=== PATIENT | male | born 1975 | race Two or more races ===

== ENCOUNTER 2019-10-15 17:48 | Inpatient (IN) | payer OTHER ==
--- NOTE | 2019-10-15 18:25 | BHS.RME ---
Substance Use & Tx History - Last Treatment Where was last treatment: Detox CIWA Nausea/Vomitin (vomiting x 2) Muscle Tremors: 4-Moderate,w/Arms Extend Anxiety: 3 Agitation: 3 Paroxysmal Sweats: 2 Orientation: 2-Disoriented Date<2 days Tacttile Disturbances: 0-None Auditory Disturbances: 0-None Visual Disturbances: 0-None Headache: 3-Moderate CIWA-Ar Total Score: 20
--- NOTE | 2019-10-15 18:48 | HP ---
CIWA Score Nausea/Vomitin (vomiting x 2) Muscle Tremors: 4-Moderate,w/Arms Extend Anxiety: 3 Agitation: 3 Paroxysmal Sweats: 2 Orientation: 2-Disoriented Date<2 days Tacttile Disturbances: 0-None Auditory Disturbances: 0-None Visual Disturbances: 0-None Headache: 3-Moderate CIWA-Ar Total Score: 20 - Admission Criteria OASAS Guidelines: Admission for Medically Managed Detox: Requires at least one of the followin. CIWA greater than 12 2. Seizures within the past 24 hours 3. Delirium tremens within the past 24 hours 4. Hallucinations within the past 24 hours 5. Acute intervention needed for co occurring medical disorder 6. Acute intervention needed for co occurring psychiatric disorder 7. Severe withdrawal that cannot be handled at a lower level of care (continued vomiting, continued diarrhea, abnormal vital signs) requiring intravenous medication and/or fluids 8. Admitting History and Physical - Smoking History Smoking history: Current every day smoker Have you smoked in the past 12 months: Yes Aproximately how many cigarettes per day: 10 - Alcohol/Substance Use Hx Alcohol Use: Yes (BEER/VODKA) Admission ROS [facility] Chief Complaint: Alcohol withdrawal symptoms Allergies/Adverse Reactions: Allergies Allergy/AdvReac Type Severity Reaction Status Date / Time No Known Allergies Allergy Verified 10/15/19 19:03 History of Present Illness: 44 years old male with a long history of alcohol dependence is seeking admission to detox. Patient's recent detox was at [facility] and he reports 2 years of sobriety. His last admission to [facility] was for the period 09/12-09/17/2014. He has medical history of asthma, hypertension, Diabetes type 2(diet controlled- not on medication), GERD and psych. history of depression, bipolar disorder, PTSD and schizophrenia. He reports suicide attempt in 2005, 2018 and denies suicidal ideation at this time. 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 He is unemployed and lives with his girlfriend. Exam Limitations: No Limitations - Ebola screening Have you traveled outside of the country in the last 21 days: No Have you had contact with anyone from an Ebola affected area: No Do you have a fever: No - Review of Systems Constitutional: Chills, Loss of Appetite, Malaise, Changes in sleep EENT: reports: Nose Congestion Respiratory: reports: No Symptoms reported Cardiac: reports: No Symptoms Reported GI: reports: Diarrhea (x 2), Poor Appetite, Poor Fluid Intake, Vomiting, Abdominal cramping : reports: No Symptoms Reported Musculoskeletal: reports: Back Pain, Joint Pain, Muscle Pain Integumentary: reports: Dryness, Flushing Neuro: reports: Headache, Tremors Endocrine: reports: No Symptoms Reported Hematology: reports: No Symptoms Reported Psychiatric: reports: Mood/Affect Appropiate, Anxious, Depressed Other Systems: Reviewed and Negative Patient History - Patient Medical History Hx Anemia: No Hx Asthma: Yes (ALBUTEROL INHALER PRN) Hx Chronic Obstructive Pulmonary Disease (COPD): No Hx Cardiac Disorders: No Hx Hypertension: Yes (On Enalapril) Hx Hypercholesterolemia: No HX Cerebrovascular Accident: No Hx Seizures: Yes (-last 2012,Etoh & Xanax r/t) Hx Diabetes: Yes (Diet controlled- Not on meds) Hx Gastrointestinal Disorders: Yes (GERD-On Nexium) Hx Genitourinary Disorders: No Hx Sexually Transmitted Disorders: No Hx Renal Disease (ESRD): No Hx Thyroid Disease: No Hx Human Immunodeficiency Virus (HIV): No (NEGATIVE 2018) Hx Hepatitis C: No Hx Depression: Yes (AND ANXIETY) Hx Suicide Attempt: Yes (Hx ATTEMPTS 2005, 2018. DENIES CURRENT SUICIDAL IDEATIONS) Hx Bipolar Disorder: Yes Hx Schizophrenia: Yes - Patient Surgical History Past Surgical History: Yes Hx Cholecystectomy: Yes (GALLBLADDER SX IN 2013) Anesthesia Reaction: No - PPD History Previous Implant?: Yes Documented Results: Negative w/proof Implanted On Prior R Admission?: Yes Date: 09/15/14 PPD to be Administered?: Yes - Reproductive History Patient is a Female of Child Bearing Age (11 -55 yrs old): No (MALE) - Smoking Cessation Smoking history: Current every day smoker Have you smoked in the past 12 months: Yes Aproximately how many cigarettes per day: 10 Hx Chewing Tobacco Use: No Initiated information on smoking cessation: Yes 'Breaking Loose' booklet given: 10/15/19 - Substance & Tx. History Hx Alcohol Use: Yes Hx Substance Use: Yes Substance Use Type: Alcohol, Marijuana Hx Substance Use Treatment: Yes ([facility]) - Substances abused Alcohol Substance route: Oral Frequency: Daily Amount used: 6 (40 oz) Beers Age of first use: 14 Date of last use: 10/15/19 Admission Physical Exam [facility] - Physical General Appearance: Yes: Within Normal Limits, Tremorous, Irritable, Sweating, Anxious HEENTM: Yes: Within Normal Limits Respiratory: Yes: Lungs Clear, Normal Breath Sounds, No Respiratory Distress Neck: Yes: Within Normal Limits Breast: Yes: Breast Exam Deferred Cardiology: Yes: Tachycardia Abdominal: Yes: Normal Bowel Sounds, Protuberent Genitourinary: Yes: Within Normal Limits, Vaginal Discharge Musculoskeletal: Yes: Back pain, Muscle Pain Extremities: Yes: Tremors Neurological: Yes: Within Normal Limits, Normal Mood/Affect Integumentary: Yes: Warm Lymphatic: Yes: Within Normal Limits - Diagnostic (1) Alcohol related seizure Current Visit: No Status: Chronic (2) Nicotine dependence Current Visit: Yes Status: Chronic Qualifiers: Nicotine product type: cigarettes Substance use status: uncomplicated Qualified Code(s): F17.210 - Nicotine dependence, cigarettes, uncomplicated (3) PTSD (post-traumatic stress disorder) Current Visit: Yes Status: Chronic (4) Schizoaffective disorder Current Visit: Yes Status: Chronic (5) Acid reflux disease Current Visit: Yes Status: Chronic Qualifiers: Esophagitis presence: esophagitis presence not specified Qualified Code(s) : K21.9 - Gastro-esophageal reflux disease without esophagitis (6) Anxiety Current Visit: Yes Status: Chronic (7) Asthma Current Visit: Yes Status: Chronic Qualifiers: Asthma severity: mild Asthma persistence: intermittent Asthma complication type: uncomplicated Qualified Code(s): J45.20 - Mild intermittent asthma, uncomplicated (8) Depression Current Visit: Yes Status: Chronic (9) HTN (hypertension) Current Visit: Yes Status: Chronic Qualifiers: Hypertension type: unspecified Qualified Code(s): I10 - Essential (primary ) hypertension (10) Type 2 diabetes mellitus Current Visit: Yes Status: Chronic Qualifiers: Diabetes mellitus complication status: without complication (11) Alcohol dependence with withdrawal, uncomplicated Current Visit: Yes Status: Acute Cleared for Admission [facility] - Detox or Rehab [facility] Level of Care: Medically Managed Detox Regimen/Protocol: Librium Claeared for Rehab Admission: No Breathalyzer - Breathalyzer Breathalyzer: 0.139 Urine Drug Screen - Test Device Lot number: [id number] Expiration date: 07/18/21 - Control Is test valid?: Yes - Results Drug screen NEGATIVE: No Urine drug screen results: THC-Marijuana Inpatient Rehab Admission - Rehab Decision to Admit Inpatient rehab admission?: No
[2019-10-15 19:16] VITALS: BMI 31.6
[2019-10-15] MEDS ORDERED: NICOTINE POLACRILEX 2 MG GUM BUC PRN (20:26)
[2019-10-15] MEDS ORDERED: MAG HYDROX/AL HYDROX/SIMETH 30 ML UNIT-DOSE CUP PO PRN (20:26)
[2019-10-15] MEDS ORDERED: MENTHOL/PHENOL 1 EACH UD MM PRN (20:26)
[2019-10-15] MEDS ORDERED: MAGNESIUM HYDROX 2400MG/30ML ORAL SUSPENSION 30 ML CUP PO PRN (20:26)
[2019-10-15] MEDS ORDERED: BISMUTH SUBSALICYLATE 524 MG/30 ML UD PO PRN (20:26)
[2019-10-15] MEDS ORDERED: ACETAMINOPHEN 325 MG TABLET (FP) PO PRN ×2 (20:26)
[2019-10-15] MEDS ORDERED: hydrOXYzine PAMOATE 25 MG CAPSULE (FP) PO PRN (20:26)
[2019-10-15] MEDS ORDERED: MAGNESIUM CITRATE 300 ML BOTTLE PO PRN (20:26)
[2019-10-15] MEDS: THIAMINE HCL 100 MG TABLET (FP) PO SCH (21:08)
[2019-10-15] MEDS: ENALAPRIL MALEATE 10 MG TABLET (FP) PO SCH (21:08)
[2019-10-15] MEDS: IBUPROFEN 400 MG TABLET (FP) PO PRN (21:12)
[2019-10-15] MEDS: chlordiazePOXIDE HCL 25 MG CAPSULE PO SCH (21:59)
[2019-10-15] MEDS ORDERED: MELATONIN 5 MG TABLETS PO PRN (22:00)
[2019-10-16] MEDS: IBUPROFEN 400 MG TABLET (FP) PO PRN ×2 (05:35→16:55)
[2019-10-16] MEDS: chlordiazePOXIDE HCL 25 MG CAPSULE PO SCH ×4 (05:36→22:01)
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
[2019-10-16] MEDS: PRENATAL VITAMINS W/ FOLIC ACID TABLET (FP) PO SCH (10:44)
[2019-10-16] MEDS: ENALAPRIL MALEATE 10 MG TABLET (FP) PO SCH (10:44)
[2019-10-16] MEDS: NICOTINE 14 MG/24 HOURS TOPICAL PATCH TD SCH (10:45)
[2019-10-16] MEDS: OLANZapine 10 MG TABLET PO SCH (10:45)
[2019-10-16] MEDS: OXcarbazepine 300 MG TABLET (UD) PO SCH ×2 (10:45→22:01)
[2019-10-16] MEDS: DULoxetine HCL 60 MG CAPSULE.DR PO SCH (10:46)
[2019-10-16 11:22] LABS: HEMATOCRIT 45.9 % (35.4-49); HEMOGLOBIN 15.9 GM/dL (11.7-16.9); MCH 32.2 pg (25.7-33.7); MCHC 34.6 g/dl (32.0-35.9); MEAN CELL VOLUME 93.2 fl (80-96); MEAN PLT VOLUME 8.2 fl (7.5-11.1); PLATELET COUNT 221 K/MM3 (134-434); RBC 4.92 M/mm3 (4.00-5.60); RDW 14.7 % (11.9-15.9)
[2019-10-16 11:36] LABS: CALCIUM 8.5 mg/dL (8.5-10.1); POTASSIUM 4.4 mmol/L (3.5-5.1)
[2019-10-16 12:03] LABS: ALBUMIN 4.2 g/dl (3.4-5.0); BILIRUBIN,TOTAL 0.9 mg/dL (0.2-1); CREATININE 0.8 mg/dL (0.55-1.3); TOT PROT 7.4 g/dl (6.4-8.2)
--- NOTE | 2019-10-16 12:18 | PN ---
S CIWA - CIWA Score Nausea/Vomitin Muscle Tremors: 1-None Visible, but [place] Anxiety: 2 Agitation: 1-Slight > Activity Paroxysmal Sweats: 2 Orientation: 0-Oriented Tacttile Disturbances: 1-Very Mild Itch/Numbness Auditory Disturbances: 0-None Visual Disturbances: 0-None Headache: 0-None Present CIWA-Ar Total Score: 10 BHS COWS - Scale Resting Pulse: 0= [place] 80 or Below Sweatin=Flushed/Facial Moisture Restless Observation: 1= Difficult to Sit Still Pupil Size: 1= Pupils >than Normal Bone or Joint Aches: 1= Mild Discomfort Runny Nose/ Eye Tearin= Nasal Congestion GI Upset > 30mins: 2= Nausea/Diarrhea Tremor Observation of Outstretched Hands: 1= Tremor [place], Not Seen Yawning Observation: 0= None Anxiety or Irritability: 2=Irritable/Anxious Goose Flesh Skin: 0=Smooth Skin COWS Score: 11 S Progress Note (SOAP) Subjective: interrupted sleep, sweats shakes, nausea, diarrhea , decreased apeptite Objective: 10/16/19 12:16 Vital Signs Temperature 98.8 F 10/16/19 08:41 Pulse Rate 101 H 10/16/19 08:41 Respiratory Rate 18 10/16/19 08:41 Blood Pressure 147/83 10/16/19 08:41 O2 Sat by Pulse Oximetry (%) Laboratory Tests 10/16/19 10/16/19 10/16/19 05:38 08:00 08:00 WBC 6.0 RBC 4.92 Hgb 15.9 Hct 45.9 MCV 93.2 MCH 32.2 MCHC 34.6 RDW 14.7 Plt Count 221 MPV 8.2 Sodium 140 Potassium 4.4 Chloride 106 Carbon Dioxide 27 Anion Gap 7 L BUN 10.0 Creatinine 0.8 Est GFR (CKD-EPI)AfAm 124.16 Est GFR (CKD-EPI)NonAf 107.13 POC Glucometer 99 Random Glucose 89 Calcium 8.5 Total Bilirubin 0.9 AST 27 ALT 48 Alkaline Phosphatase 104 Total Protein 7.4 Albumin 4.2 RPR Titer 10/16/19 08:00 WBC RBC Hgb Hct MCV MCH MCHC RDW Plt Count MPV Sodium Potassium Chloride Carbon Dioxide Anion Gap BUN Creatinine Est GFR (CKD-EPI)AfAm Est GFR (CKD-EPI)NonAf POC Glucometer Random Glucose Calcium Total Bilirubin AST ALT Alkaline Phosphatase Total Protein Albumin RPR Titer Nonreactive pt aox3 in nad ambulating but appearing anxious Assessment: 10/16/19 12:17 withdrawal sx';s Plan: continue detox increase fluids peptobismol
--- NOTE | 2019-10-16 12:52 | EKG ---
Test Reason : Blood Pressure : / mmHG Vent. Rate : 091 BPM Atrial Rate : 091 BPM P-R Int : 144 ms QRS Dur : 074 ms QT Int : 346 ms P-R-T Axes : 038 041 049 degrees QTc Int : 425 ms NORMAL SINUS RHYTHM NORMAL ECG NO PREVIOUS ECGS AVAILABLE Confirmed by CHI KRAUSE MD ([id number]) on 10/16/2019 12:52:13 PM Referred By: Confirmed By:CHI KRAUSE MD
[2019-10-16] MEDS: THIAMINE HCL 100 MG TABLET (FP) PO SCH (22:01)
[2019-10-16] MEDS: traZODone HCL 100 MG TABLET (FP) PO SCH (22:01)
[2019-10-16] MEDS: METHOCARBAMOL 500 MG TABLET PO PRN (22:02)
[2019-10-17] MEDS: chlordiazePOXIDE HCL 25 MG CAPSULE PO SCH ×4 (05:32→22:55)
[2019-10-17] MEDS: chlordiazePOXIDE HCL 25 MG CAPSULE PO PRN ×2 (07:55→13:35)
[2019-10-17] MEDS: DULoxetine HCL 60 MG CAPSULE.DR PO SCH (10:12)
[2019-10-17] MEDS: ENALAPRIL MALEATE 10 MG TABLET (FP) PO SCH (10:12)
[2019-10-17] MEDS: PRENATAL VITAMINS W/ FOLIC ACID TABLET (FP) PO SCH (10:12)
[2019-10-17] MEDS: METHOCARBAMOL 500 MG TABLET PO PRN (10:12)
[2019-10-17] MEDS: NICOTINE 14 MG/24 HOURS TOPICAL PATCH TD SCH (10:12)
[2019-10-17] MEDS: OLANZapine 10 MG TABLET PO SCH (10:13)
[2019-10-17] MEDS: OXcarbazepine 300 MG TABLET (UD) PO SCH ×2 (10:13→22:55)
[2019-10-17] MEDS: IBUPROFEN 400 MG TABLET (FP) PO PRN (13:32)
--- NOTE | 2019-10-17 17:50 | PN ---
S CIWA - CIWA Score Nausea/Vomitin Muscle Tremors: None Anxiety: 4-Mod. Anxious/Guarded Agitation: 3 Paroxysmal Sweats: No Perspiration Orientation: 0-Oriented Tacttile Disturbances: 0-None Auditory Disturbances: 0-None Visual Disturbances: 1-Very Mild Sensitivity Headache: 0-None Present CIWA-Ar Total Score: 11 BHS COWS - Scale Resting Pulse: 2= [place] 101-120 Sweatin= No chills or Flushing Restless Observation: 1= Difficult to Sit Still Pupil Size: 0= Normal to Room Light Bone or Joint Aches: 1= Mild Discomfort Runny Nose/ Eye Tearin= None GI Upset > 30mins: 2= Nausea/Diarrhea Tremor Observation of Outstretched Hands: 0= None Yawning Observation: 1= 1-2x During Session Anxiety or Irritability: 2=Irritable/Anxious Goose Flesh Skin: 0=Smooth Skin COWS Score: 9 BHS Progress Note (SOAP) Subjective: Anxious, Fatigue, Nausea, Body Aches. Objective: PATIENT A & O X 3, OBSERVED AMBULATING ON DETOX UNIT UNASSISTED. IN NO ACUTE DISTRESS. 10/17/19 17:49 Vital Signs Temperature 96.5 F L 10/17/19 06:36 Pulse Rate 101 H 10/17/19 11:26 Respiratory Rate 20 10/17/19 11:26 Blood Pressure 135/84 10/17/19 11:26 O2 Sat by Pulse Oximetry (%) Laboratory Tests 10/16/19 10/16/19 10/16/19 05:38 08:00 08:00 WBC 6.0 RBC 4.92 Hgb 15.9 Hct 45.9 MCV 93.2 MCH 32.2 MCHC 34.6 RDW 14.7 Plt Count 221 MPV 8.2 Sodium 140 Potassium 4.4 Chloride 106 Carbon Dioxide 27 Anion Gap 7 L BUN 10.0 Creatinine 0.8 Est GFR (CKD-EPI)AfAm 124.16 Est GFR (CKD-EPI)NonAf 107.13 POC Glucometer 99 Random Glucose 89 Calcium 8.5 Total Bilirubin 0.9 AST 27 ALT 48 Alkaline Phosphatase 104 Total Protein 7.4 Albumin 4.2 RPR Titer 10/16/19 10/16/19 10/17/19 08:00 16:44 05:34 WBC RBC Hgb Hct MCV MCH MCHC RDW Plt Count MPV Sodium Potassium Chloride Carbon Dioxide Anion Gap BUN Creatinine Est GFR (CKD-EPI)AfAm Est GFR (CKD-EPI)NonAf POC Glucometer 97 97 Random Glucose Calcium Total Bilirubin AST ALT Alkaline Phosphatase Total Protein Albumin RPR Titer Nonreactive 10/17/19 16:34 WBC RBC Hgb Hct MCV MCH MCHC RDW Plt Count MPV Sodium Potassium Chloride Carbon Dioxide Anion Gap BUN Creatinine Est GFR (CKD-EPI)AfAm Est GFR (CKD-EPI)NonAf POC Glucometer 124 Random Glucose Calcium Total Bilirubin AST ALT Alkaline Phosphatase Total Protein Albumin RPR Titer LABS NOTED. Assessment: 10/17/19 17:49 WITHDRAWAL SYMPTOMS. Plan: CONTINUE DETOX. INCREASE DAILY ORAL WATER INTAKE.
[2019-10-17] MEDS: THIAMINE HCL 100 MG TABLET (FP) PO SCH (22:55)
[2019-10-17] MEDS: traZODone HCL 100 MG TABLET (FP) PO SCH (22:55)
[2019-10-18] MEDS ORDERED: chlordiazePOXIDE HCL 10 MG CAPSULE PO PRN
[2019-10-18] MEDS: chlordiazePOXIDE HCL 10 MG CAPSULE PO SCH ×4 (05:51→22:22)
[2019-10-18] MEDS: IBUPROFEN 400 MG TABLET (FP) PO PRN ×3 (05:52→17:32)
[2019-10-18] MEDS: NICOTINE 14 MG/24 HOURS TOPICAL PATCH TD SCH (11:11)
[2019-10-18] MEDS: OXcarbazepine 300 MG TABLET (UD) PO SCH ×2 (11:16→22:23)
[2019-10-18] MEDS: DULoxetine HCL 60 MG CAPSULE.DR PO SCH (11:17)
[2019-10-18] MEDS: PRENATAL VITAMINS W/ FOLIC ACID TABLET (FP) PO SCH (11:17)
[2019-10-18] MEDS: ENALAPRIL MALEATE 10 MG TABLET (FP) PO SCH (11:19)
[2019-10-18] MEDS: OLANZapine 10 MG TABLET PO SCH (11:20)
--- NOTE | 2019-10-18 15:35 | PN ---
[facility] CIWA - CIWA Score Nausea/Vomitin-No Nausea/No Vomiting Muscle Tremors: 2 Anxiety: 2 Agitation: 2 Paroxysmal Sweats: 2 Orientation: 0-Oriented Tacttile Disturbances: 0-None Auditory Disturbances: 0-None Visual Disturbances: 0-None Headache: 0-None Present CIWA-Ar Total Score: 8 S Progress Note (SOAP) Subjective: Tremor, nausea, interrupted sleep Objective: 10/18/19 15:31 Last Vital Signs Temp Pulse Resp BP Pulse Ox 96.9 F L 60 16 152/78 10/18/19 12:41 10/18/19 12:41 10/18/19 12:41 10/18/19 12:41 Elevated b/p noted Laboratory Tests 10/16/19 10/16/19 10/16/19 05:38 08:00 08:00 WBC 6.0 RBC 4.92 Hgb 15.9 Hct 45.9 MCV 93.2 MCH 32.2 MCHC 34.6 RDW 14.7 Plt Count 221 MPV 8.2 Sodium 140 Potassium 4.4 Chloride 106 Carbon Dioxide 27 Anion Gap 7 L BUN 10.0 Creatinine 0.8 Est GFR (CKD-EPI)AfAm 124.16 Est GFR (CKD-EPI)NonAf 107.13 POC Glucometer 99 Random Glucose 89 Calcium 8.5 Total Bilirubin 0.9 AST 27 ALT 48 Alkaline Phosphatase 104 Total Protein 7.4 Albumin 4.2 RPR Titer 10/16/19 10/16/19 10/17/19 08:00 16:44 05:34 WBC RBC Hgb Hct MCV MCH MCHC RDW Plt Count MPV Sodium Potassium Chloride Carbon Dioxide Anion Gap BUN Creatinine Est GFR (CKD-EPI)AfAm Est GFR (CKD-EPI)NonAf POC Glucometer 97 97 Random Glucose Calcium Total Bilirubin AST ALT Alkaline Phosphatase Total Protein Albumin RPR Titer Nonreactive 10/17/19 10/18/19 16:34 06:16 WBC RBC Hgb Hct MCV MCH MCHC RDW Plt Count MPV Sodium Potassium Chloride Carbon Dioxide Anion Gap BUN Creatinine Est GFR (CKD-EPI)AfAm Est GFR (CKD-EPI)NonAf POC Glucometer 124 111 Random Glucose Calcium Total Bilirubin AST ALT Alkaline Phosphatase Total Protein Albumin RPR Titer Labs reviewed Assessment: 10/18/19 15:32 Withdrawal sxs HTN noted Plan: Continue detox Encouraged PO water intake HTN: continue enalapril, monitor b/p
[2019-10-18] MEDS: ONDANSETRON *ODT* 4 MG TABLET SL PRN (17:32)
[2019-10-18] MEDS: METHOCARBAMOL 500 MG TABLET PO PRN (17:35)
[2019-10-18] MEDS: THIAMINE HCL 100 MG TABLET (FP) PO SCH (22:23)
[2019-10-18] MEDS: traZODone HCL 100 MG TABLET (FP) PO SCH (22:23)
[2019-10-19] MEDS: METHOCARBAMOL 500 MG TABLET PO PRN ×3 (06:01→22:39)
[2019-10-19] MEDS: chlordiazePOXIDE HCL 10 MG CAPSULE PO SCH ×2 (06:02→17:34)
[2019-10-19] MEDS: IBUPROFEN 400 MG TABLET (FP) PO PRN ×3 (06:02→22:39)
[2019-10-19] MEDS: DULoxetine HCL 60 MG CAPSULE.DR PO SCH (10:28)
[2019-10-19] MEDS: OLANZapine 10 MG TABLET PO SCH (10:28)
[2019-10-19] MEDS: PRENATAL VITAMINS W/ FOLIC ACID TABLET (FP) PO SCH (10:28)
[2019-10-19] MEDS: OXcarbazepine 300 MG TABLET (UD) PO SCH ×2 (10:28→22:37)
[2019-10-19] MEDS: ENALAPRIL MALEATE 10 MG TABLET (FP) PO SCH (10:28)
[2019-10-19] MEDS: NICOTINE 14 MG/24 HOURS TOPICAL PATCH TD SCH (10:28)
--- NOTE | 2019-10-19 11:37 | PN ---
S CIWA - CIWA Score Nausea/Vomitin-No Nausea/No Vomiting Muscle Tremors: 2 Anxiety: 1-Mildly Anxious Agitation: 1-Slight > Activity Paroxysmal Sweats: No Perspiration Orientation: 0-Oriented Tacttile Disturbances: 0-None Auditory Disturbances: 0-None Visual Disturbances: 0-None Headache: 0-None Present CIWA-Ar Total Score: 4 BHS Progress Note (SOAP) Subjective: headache poor appetite Objective: 10/19/19 11:36 Vital Signs Temperature 97.7 F 10/19/19 08:50 Pulse Rate 97 H 10/19/19 08:50 Respiratory Rate 20 10/19/19 08:50 Blood Pressure 140/90 10/19/19 08:50 O2 Sat by Pulse Oximetry (%) aaox3 ambulating no acute distress Assessment: 10/19/19 11:36 mild withdrawal sx Plan: motrin/tylenol prn ensure bid d/c in am
[2019-10-19] MEDS: traZODone HCL 100 MG TABLET (FP) PO SCH (22:37)
[2019-10-19] MEDS: THIAMINE HCL 100 MG TABLET (FP) PO SCH (22:37)
[2019-10-20] MEDS ORDERED: chlordiazePOXIDE HCL 10 MG CAPSULE PO ONE (05:00)
[2019-10-20] MEDS: METHOCARBAMOL 500 MG TABLET PO PRN (06:04)
[2019-10-20] MEDS: IBUPROFEN 400 MG TABLET (FP) PO PRN (06:06)
[2019-10-20] MEDS ORDERED: cloNIDine HCL 0.1 MG TABLET PO ONE (08:43)
[2019-10-20] MEDS: OLANZapine 10 MG TABLET PO SCH (09:02)
[2019-10-20] MEDS: DULoxetine HCL 60 MG CAPSULE.DR PO SCH (09:02)
[2019-10-20] MEDS: PRENATAL VITAMINS W/ FOLIC ACID TABLET (FP) PO SCH (09:02)
[2019-10-20] MEDS: ENALAPRIL MALEATE 10 MG TABLET (FP) PO SCH (09:02)
[2019-10-20] MEDS: OXcarbazepine 300 MG TABLET (UD) PO SCH (09:03)
[2019-10-20] MEDS: ONDANSETRON *ODT* 4 MG TABLET SL PRN (09:06)
[2019-10-20] MEDS: NICOTINE 14 MG/24 HOURS TOPICAL PATCH TD SCH (09:07)
--- NOTE | 2019-10-20 09:19 | DS ---
[facility] Detox Discharge Summary Admission Date: 10/15/19 Discharge Date: 10/20/19 - History Present History: Alcohol Dependence - Physical Exam Results Vital Signs: Vital Signs Temperature 97.2 F L 10/20/19 05:59 Pulse Rate 110 H 10/20/19 05:59 Respiratory Rate 18 10/20/19 05:59 Blood Pressure 141/97 10/20/19 05:59 O2 Sat by Pulse Oximetry (%) Pertinent Admission Physical Exam Findings: Vital Signs Temperature 97.2 F L 10/20/19 05:59 Pulse Rate 110 H 10/20/19 05:59 Respiratory Rate 18 10/20/19 05:59 Blood Pressure 141/97 10/20/19 05:59 O2 Sat by Pulse Oximetry (%) Laboratory Tests 10/16/19 10/16/19 10/16/19 05:38 08:00 08:00 WBC 6.0 RBC 4.92 Hgb 15.9 Hct 45.9 MCV 93.2 MCH 32.2 MCHC 34.6 RDW 14.7 Plt Count 221 MPV 8.2 Sodium 140 Potassium 4.4 Chloride 106 Carbon Dioxide 27 Anion Gap 7 L BUN 10.0 Creatinine 0.8 Est GFR (CKD-EPI)AfAm 124.16 Est GFR (CKD-EPI)NonAf 107.13 POC Glucometer 99 Random Glucose 89 Calcium 8.5 Total Bilirubin 0.9 AST 27 ALT 48 Alkaline Phosphatase 104 Total Protein 7.4 Albumin 4.2 RPR Titer 10/16/19 10/16/19 10/17/19 08:00 16:44 05:34 WBC RBC Hgb Hct MCV MCH MCHC RDW Plt Count MPV Sodium Potassium Chloride Carbon Dioxide Anion Gap BUN Creatinine Est GFR (CKD-EPI)AfAm Est GFR (CKD-EPI)NonAf POC Glucometer 97 97 Random Glucose Calcium Total Bilirubin AST ALT Alkaline Phosphatase Total Protein Albumin RPR Titer Nonreactive 10/17/19 10/18/19 10/18/19 16:34 06:16 16:47 WBC RBC Hgb Hct MCV MCH MCHC RDW Plt Count MPV Sodium Potassium Chloride Carbon Dioxide Anion Gap BUN Creatinine Est GFR (CKD-EPI)AfAm Est GFR (CKD-EPI)NonAf POC Glucometer 124 111 156 Random Glucose Calcium Total Bilirubin AST ALT Alkaline Phosphatase Total Protein Albumin RPR Titer 10/19/19 10/19/19 10/20/19 06:00 16:35 06:03 WBC RBC Hgb Hct MCV MCH MCHC RDW Plt Count MPV Sodium Potassium Chloride Carbon Dioxide Anion Gap BUN Creatinine Est GFR (CKD-EPI)AfAm Est GFR (CKD-EPI)NonAf POC Glucometer 108 138 104 Random Glucose Calcium Total Bilirubin AST ALT Alkaline Phosphatase Total Protein Albumin RPR Titer aaox3 ambulating no acute distress - Treatment Hospital Course: Detox Protocol Followed, Detoxed Safely, Responded well, Discharged Condition Good, Rehab Referral Accepted - Medication Discharge Medications: Ambulatory Orders Duloxetine HCl [Cymbalta] 60 mg PO DAILY 10/15/19 Enalapril Maleate [Vasotec] 20 mg PO DAILY 10/15/19 Ibuprofen 600 mg PO Q8H 10/15/19 Olanzapine [Zyprexa] 20 mg PO DAILY 10/15/19 Oxcarbazepine [Trileptal] 300 mg PO BID 10/15/19 traZODone HCL [Trazodone HCl] 100 mg PO HS 10/15/19 - Diagnosis (1) Alcohol dependence with withdrawal, uncomplicated Current Visit: Yes Status: Chronic (2) Alcohol-induced mood disorder Current Visit: Yes Status: Acute (3) Alcohol-induced sleep disorder Current Visit: Yes Status: Acute (4) Acid reflux disease Current Visit: Yes Status: Chronic Qualifiers: Esophagitis presence: without esophagitis Qualified Code(s): K21.9 - Gastro -esophageal reflux disease without esophagitis (5) Anxiety Current Visit: Yes Status: Chronic (6) Asthma Current Visit: Yes Status: Chronic Qualifiers: Asthma severity: mild Asthma persistence: intermittent Asthma complication type: uncomplicated Qualified Code(s): J45.20 - Mild intermittent asthma, uncomplicated (7) Depression Current Visit: Yes Status: Chronic (8) HTN (hypertension) Current Visit: Yes Status: Chronic Qualifiers: Hypertension type: unspecified Qualified Code(s): I10 - Essential (primary ) hypertension (9) Nicotine dependence Current Visit: Yes Status: Chronic Qualifiers: Nicotine product type: cigarettes Substance use status: uncomplicated Qualified Code(s): F17.210 - Nicotine dependence, cigarettes, uncomplicated (10) PTSD (post-traumatic stress disorder) Current Visit: Yes Status: Chronic (11) Schizoaffective disorder Current Visit: Yes Status: Chronic (12) Type 2 diabetes mellitus Current Visit: Yes Status: Chronic Qualifiers: Diabetes mellitus complication status: without complication (13) Schizophrenia Current Visit: No Status: Chronic (14) Seizure Current Visit: No Status: Chronic (15) Alcohol related seizure Current Visit: No Status: Resolved - AMA Did Patient Leave Against Medical Advice: No
--- NOTE | 2019-10-20 09:24 | PN ---
S Progress Note Note: pt c/o of fast heart beat, pt had his BP checked at 8:40am...142/79, HR 136. pt denies SOB, denies chest pain, denies radiating pain down arm. clonidine 0.1mg x one will repeat BP will monitor
--- NOTE | 2019-10-20 13:25 | PN ---
[facility] Progress Note Note: pt c/o pressure to his chest and having SOB, ekg ordered; tachycardia but otherwise normal EKG. spoke with Dr. Valdes report given to have pt evaluated for chest discomfort. pt may return back once he is cleared and go to rehab.
[2019-10-20 14:43] VITALS: BP 103/58; PULSE 142; TEMP 98.1
== END 2019-10-20 21:51 | disposition short-term general hospital (02) | DRG 775 ==
LOC: YASAS 17:48 → Y6N 20:22
PROVIDERS: ADMIT Allergy & Immunology; ATTEND Allergy & Immunology
PROC: HZ2ZZZZ Detoxification Services for Substance Abuse Treatment (ICD-10-PCS; principal; 2019-10-15)
DX: F10.230 Alcohol dependence with withdrawal, uncomplicated (principal); F17.210 Nicotine dependence, cigarettes, uncomplicated; F10.24 Alcohol dependence with alcohol-induced mood disorder; F10.282 Alcohol dependence with alcohol-induced sleep disorder; F25.9 Schizoaffective disorder, unspecified; F41.8 Other specified anxiety disorders; F32.9 Major depressive disorder, single episode, unspecified; F43.10 Post-traumatic stress disorder, unspecified; I10 Essential (primary) hypertension; E11.9 Type 2 diabetes mellitus without complications; J45.20 Mild intermittent asthma, uncomplicated; K21.9 Gastro-esophageal reflux disease without esophagitis; R06.02 Shortness of breath; R07.9 Chest pain, unspecified; Z86.69 Personal history of other diseases of the nervous system and sense organs
CPT/HCPCS: 36415; 80053; 82962; 85027; 86593; 93005; 93010; J0735; Q0162

== ENCOUNTER 2019-10-20 13:50 | Inpatient (IN) | payer OTHER ==
--- NOTE | 2019-10-20 14:13 | PDOC ---
History of Present Illness - General Chief Complaint: Irregular Heart Beat Stated Complaint: Tachycardia Time Seen by Provider: 10/20/19 14:05 History Source: Patient Exam Limitations: No Limitations - History of Present Illness Initial Comments: Jovanni Azul is a 44 yo m w a hx of alcohol dependence complicated by withdrawal with seizures coming from [facility], asthma, HTN, NIDDM, GERD, depression, anxiety, multiple suicide attempts, bipolar disorder, and schizophrenia who presents to the [facility] er with palpitations and an abnormal heart rate. The patient states his heart intermittently starts beating fast and then normalizes and this has been ongoing for the past week if not longer. The patient is not currently on anticoagulants or any rate slowing medications. He states that when the fluttering sensation happens he feels like his chest hurts and describes the pain as sharp and heavy like in nature. The pain and fluttering is not associated with any nausea or vomiting. The patient states he told the provider at [facility] about his palpitations and he was given 0.1 mg of clonidine for treatment but he states he does not believe this helped his situation. PCP: Ariella Sanchez PSH: cholecystectomy Allergies: NKA, NKDA Social Hx: Smokes 1 PPD, frequently drinks alcohol and uses marijuana often. Past History - Past Medical History Allergies/Adverse Reactions: Allergies Allergy/AdvReac Type Severity Reaction Status Date / Time No Known Allergies Allergy Verified 10/20/19 14:44 Home Medications: Ambulatory Orders Duloxetine HCl [Cymbalta] 60 mg PO DAILY 10/15/19 Enalapril Maleate [Vasotec] 20 mg PO DAILY 10/15/19 Olanzapine [Zyprexa] 20 mg PO DAILY 10/15/19 Oxcarbazepine [Trileptal] 300 mg PO BID 10/15/19 traZODone HCL [Trazodone HCl] 100 mg PO HS 10/15/19 Anemia: No Asthma: Yes (ALBUTEROL INHALER PRN) Cardiac Disorders: No CVA: No COPD: No Diabetes: Yes (Diet controlled- Not on meds) GI Disorders: Yes (GERD-On Nexium) Disorders: No HTN: Yes (On Enalapril) Hypercholesterolemia: No Kidney Stones: No Seizures: Yes (-last 2012,Etoh & Xanax r/t) Thyroid Disease: No - Surgical History Abdominal Surgery: Yes (mesh surgery 2017) Appendectomy: No Cardiac Surgery: No Cholecystectomy: Yes (GALLBLADDER SX IN 2014) Lung Surgery: No Neurologic Surgery: No Orthopedic Surgery: No - Reproductive History Testicular Surgery: No - Psycho Social/Smoking Cessation Hx Smoking History: Current every day smoker Have you smoked in the past 12 months: Yes Number of Cigarettes Smoked Daily: 10 'Breaking Loose' booklet given: 10/15/19 Hx Alcohol Use: Yes Drug/Substance Use Hx: Yes Substance Use Type: Alcohol, Marijuana Hx Substance Use Treatment: Yes ([facility]) Review of Systems - Review of Systems Able to Perform ROS?: Yes Comments:: CONSTITUTIONAL: Absent: fever, no chills, no fatigue EYES: Absent: visual changes ENT: Absent: ear pain, no sore throat CARDIOVASCULAR: Present: Chest pain, palpitations RESPIRATORY: Absent: cough, no SOB GI: Absent: abdominal pain, no nausea, no vomiting, no constipation, no diarrhea GENITOURINARY: Absent: dysuria, no frequency, no hematuria MUSKULOSKELETAL: Absent: back pain, no arthralgia, no myalgia SKIN: Absent: rash NEURO: Absent: headache *Physical Exam - Physical Exam GENERAL: Well-appearing, well-nourished. Mild distress. HEENT: Normocephalic, atraumatic. PERRL, EOM intact. CARDIOVASCULAR: Tachycardic rate. Regular rhythm. Normal S1, S2. PULMONARY: No evidence of respiratory distress. Lungs clear to auscultation bilaterally. No wheezing, rales or rhonchi. ABDOMEN: Soft, non-distended, non-tender. GENITOURINARY: There is a 1 cm irregular laceration on the dorsal aspect of the penis. This lacerat EXTREMITIES: Normal ROM in all four extremities. No gross deformities. SKIN: Warm, dry. No rash NEUROLOGICAL: No focal neurological deficits. ED Treatment Course - LABORATORY CBC & Chemistry Diagram: 10/20/19 14:40 10/20/19 14:40 Medical Decision Making - Medical Decision Making Jovanni Azul is a 44 yo m w a hx of alcohol dependence complicated by withdrawal with seizures coming from [facility], asthma, HTN, NIDDM, GERD, depression, anxiety, multiple suicide attempts, bipolar disorder, and schizophrenia who presents to the [facility] er with palpitations and an abnormal heart rate. The patient states his heart intermittently starts beating fast and then normalizes and this has been ongoing for the past week if not longer. The patient is not currently on anticoagulants or any rate slowing medications. He states that when the fluttering sensation happens he feels like his chest hurts and describes the pain as sharp and heavy like in nature. The pain and fluttering is not associated with any nausea or vomiting. The patient states he told the provider at [facility] about his palpitations and he was given 0.1 mg of clonidine for treatment but he states he does not believe this helped his situation. Vital Signs Temp Pulse Resp BP Pulse Ox 98.2 F 127 H 17 100/58 L 98 10/20/19 14:17 10/20/19 14:17 10/20/19 14:17 10/20/19 14:17 10/20/19 14:17 DDx IBNLT: Afib vs A-flutter, ACS, electrolyte/metabolic disturbance, dehydration, alcohol withdrawal, penile infection, sepsis Plan: EKG, Labs, Urine, IV hydration, rate vs rhythm control, re-assess. EKG: Sinus tachycardia rate of 135, narrow complex, normal axis, no hypertrophy , no ST elevations or depressions, no abnormal TWI's, no Q waves, QTc 429, VA 134 Labs: Mild leukocytosis with left shfit Urine: Mild UTI - Treating with ceftriaxone CXR: No acute pathology Uro consult: I spoke with Dr. Chappell about the laceration and considering it is over 24 hours old the laceration repair is not immediately emergent and can be evaluated later today or tomorrow morning. Disposition: Despite receiving 4 liters of fluid patient is still tachycardic. Will admit him for tachycardia, UTI, and a uro consult to repair his penile laceration. Discharge - Discharge Information Problems reviewed: Yes Clinical Impression/Diagnosis: Tachycardia Penile laceration Qualifiers: Encounter type: initial encounter Qualified Code(s): S31.21XA - Laceration without foreign body of penis, initial encounter UTI (urinary tract infection) Qualifiers: Urinary tract infection type: acute cystitis Hematuria presence: without hematuria Qualified Code(s): N30.00 - Acute cystitis without hematuria Condition: Stable - Admission Yes - Follow up/Referral - Patient Discharge Instructions - Post Discharge Activity
[2019-10-20] MEDS ORDERED: SODIUM CHLORIDE 1,000 ML IV STA (14:14)
[2019-10-20] MEDS ORDERED: ASPIRIN 81 MG CHEWABLE TABLETS PO ONE (14:14)
[2019-10-20] MEDS ORDERED: ASPIRIN 81 MG CHEWABLE TABLETS ONE (14:21)
[2019-10-20] MEDS ORDERED: SODIUM CHLORIDE 3,130 ML IV ONE (14:50)
[2019-10-20 14:58] LABS: BASO % 0.2 % (0-2.0); EOS % 1.2 % (0-4.5); HEMATOCRIT 47.1 % (35.4-49); HEMOGLOBIN 15.9 GM/dL (11.7-16.9); LYMPH % 7.4 % (8-40); MCH 31.5 pg (25.7-33.7); MCHC 33.7 g/dl (32.0-35.9); MEAN CELL VOLUME 93.5 fl (80-96); MEAN PLT VOLUME 8.4 fl (7.5-11.1); MONO % 9.8 % (3.8-10.2); NEUT % 81.4 % (42.8-82.8); PLATELET COUNT 210 K/MM3 (134-434); RBC 5.04 M/mm3 (4.00-5.60); RDW 14.4 % (11.9-15.9); WHITE BLOOD COUNT 10.2 K/mm3 (4.0-10.0)
--- NOTE | 2019-10-20 15:00 | PDOC ---
Attending Attestation - Resident Resident Name: Jd Espana - ED Attending Attestation I have performed the following: I have examined & evaluated the patient, The case was reviewed & discussed with the resident, I agree w/resident's findings & plan - HPI HPI: 10/20/19 17:50 44 yo m w a hx of alcohol dependence complicated by withdrawal with seizures coming from [facility], asthma, HTN, NIDDM, GERD, depression, anxiety, multiple suicide attempts, bipolar disorder, and schizophrenia who presents to the [facility] er with palpitations and an abnormal heart rate. The patient states his heart intermittently starts beating fast and then normalizes and this has been ongoing for the past week if not longer. The patient is not currently on anticoagulants or any rate slowing medications. He states that when the fluttering sensation happens he feels like his chest hurts and describes the pain as sharp and heavy like in nature. The pain and fluttering is not associated with any nausea or vomiting. The patient states he told the provider at [facility] about his palpitations and he was given 0.1 mg of clonidine for treatment but he states he does not believe this helped his situation. 2 days ago he ripped part of his dorsal penis while zipping up his pants. at that time he went to [facility], where he stated the doctors there placed some clotting material and dressings. no urinary sx - Physicial Exam PE: 10/20/19 14:58 Vital Signs Temp Pulse Resp BP Pulse Ox 98.2 F 127 H 17 100/58 L 98 10/20/19 14:17 10/20/19 14:17 10/20/19 14:17 10/20/19 14:17 10/20/19 14:17 Agree with the resident's HPI and PE as documented in the electronic medical record. NAD, well appearing, EOMI, PERRL, nl conjunctiva, anicteric; neck supple. lungs clear, +tachycardic., abdomen soft nontender. no rebound, guarding. Back nontender. ADORNO x4, no focal neuro deficits. No peripheral edema. normal color for ethnicity, WWP. normal external genitalia, no lesions, normal testicular lie, no scrotal or testicular edema or tenderness. +cremaster reflex bilaterally. no hernia. dorsal penis with skin tear with retracted penile skin, difficult to approximate , open without drainage or bleeding ~1mm. 10/20/19 17:51 - Medical Decision Making 10/20/19 17:51 Vital Signs Temp Pulse Resp BP Pulse Ox 98.6 F 103 H 17 114/77 100 10/20/19 15:32 10/20/19 17:31 10/20/19 17:31 10/20/19 17:31 10/20/19 17:31 Initial vital signs reviewed, afebrile, tachycardic in the 120s. Blood pressure was initially borderline low 90s over 50s as well as 89 over 50s. This may be likely due to side effect versus poor hydration. He did receive clonidine EMERGENCY PREPAREDNESS COORDINATOR at [facility] so this could cause his blood pressure to go down. Bedside barriga exam was done with normal EF, RV less than LV, no pericardial effusion. Small/flat IVC so can tolerate fluids We will give appropriate IV fluid hydration and recheck his vitals He is now normotensive, tachycardia is improved down to 103 and afebrile. Nontoxic and nonseptic appearing Basic laboratory results are within normal limits. Magnesium is mildly low so we will replete with IV mag. UA with borderline UTI, leuk esterase present, though wbc <10. will treat, given he has the penile wound as well, as possible source. ceftriaxone. Admit to medical service for further management, BP and heart rate monitoring as patient was in sinus tachycardia on his EKG no events or arrhythmias noted. Also spoke with urology, can come to see him during his hospitalization for repair of his skin tear involving dorsal penis. 10/21/19 12:58 Heart Score/ECG Review #1 ECG reviewed & interpreted by me at: 14:00 General ECG Interpretation: Sinus Rhythm, Normal Intervals Compared to previous ECG there are: Changes noted 10/20/19 14:58 Sinus tachycardia at 135 bpm. P waves before every QRS, nonspecific T wave abnormalities. Narrow QRS, normal intervals.
[2019-10-20 15:09] LABS: INR 0.9 (0.83-1.09); PROTHROMBIN TIME (PATIENT) 10.6 SEC (9.7-13.0)
--- NOTE | 2019-10-20 15:09 | EKG ---
Test Reason : Blood Pressure : / mmHG Vent. Rate : 127 BPM Atrial Rate : 127 BPM P-R Int : 146 ms QRS Dur : 072 ms QT Int : 302 ms P-R-T Axes : 044 043 031 degrees QTc Int : 438 ms SINUS TACHYCARDIA OTHERWISE NORMAL ECG WHEN COMPARED WITH ECG OF 15-OCT-2019 20:35, NO SIGNIFICANT CHANGE WAS FOUND Confirmed by MD EDMONDSON PENG ([id number]) on 10/20/2019 3:09:33 PM Referred By: Confirmed By:ANYA EDMONDSON MD
[2019-10-20 15:11] LABS: ACTIVATED PTT 34.6 SECONDS (25.2-36.5)
[2019-10-20 15:21] LABS: BILIRUBIN,TOTAL 0.4 mg/dL (0.2-1); BLOOD UREA NITROGEN 17.6 mg/dL (7-18); CREATININE 1.1 mg/dL (0.55-1.3); MAGNESIUM 1.7 mg/dL (1.8-2.4); TOT PROT 7.4 g/dl (6.4-8.2)
[2019-10-20] MEDS ORDERED: MAGNESIUM SULF 50% (8.12 MEQ/2 ML-1 GM VIAL) IVPB ONE (15:25)
[2019-10-20 15:44] LABS: EPI CELLS 4.5 /HPF (0-5/HPF); HYALINE CASTS 24 /lpf (0-8); PH,URINE 5.5 (5.0-8.0); URINE APPEARANCE CLOUDY; URINE BACTERIA 19.6 /hpf (NEGATIVE); URINE BILIRUBIN 2+ (NEGATIVE); URINE COLOR DK YELLOW; URINE GLUCOSE (UA) NEGATIVE (NEGATIVE); URINE KETONE 1+ (NEGATIVE); URINE LEUK ESTERASE 1+ (NEGATIVE); URINE NITRITE NEGATIVE (NEGATIVE); URINE PROTEIN 1+ (NEGATIVE); URINE RBC 5 /hpf (0-4); URINE WBC 4 /hpf (0-5)
[2019-10-20] MEDS ORDERED: MAGNESIUM 1GM/D5W - 1 GM/100 ML IVPB IVPB ONE (16:10)
[2019-10-20] MEDS ORDERED: CEFTRIAXONE 1,000 MG in DEXTROSE 5%-WATER - 50 ML IVPB ONE (18:06)
[2019-10-20] MEDS ORDERED: CEFTRIAXONE 1 GM/50 ML BAG ONE (18:41)
--- NOTE | 2019-10-20 19:22 | PN ---
Teaching Attending Note Name of Resident: Kelley Patel ATTENDING PHYSICIAN STATEMENT I saw and evaluated the patient. I reviewed the resident's note and discussed the case with the resident. I agree with the resident's findings and plan as documented. SUBJECTIVE: Patient is a 44 year old man with a PMH of Tobacco use, Alcohol abuse, Alcohol withdrawal seizures, Cholecystectomy, Marijuana use, Asthma, HTN, NIDDM, GERD, Depression, Anxiety, Multiple suicide attempts, Bipolar disorder, and Schizophrenia who presents from [facility] with palpitations and an abnormal heart rate. The patient states his heart intermittently starts beating fast and then normalizes and this has been ongoing for the past week if not longer. The patient is not currently on anticoagulants or any rate slowing medications. He states that when the fluttering sensation happens he feels like his chest hurts and describes the pain as sharp and heavy like in nature. The pain and fluttering is not associated with any nausea or vomiting. The patient states he told the provider at [facility] about his palpitations and he was given 0.1 mg of clonidine for treatment but he states he does not believe this helped his situation. Two days ago he ripped part of his dorsal penis while zipping up his pants. At that time he went to [facility], where he stated the doctors there placed some clotting material and dressings. Denies dysuria, frequency, urgency, chest pain, SOB, headache or diarrhea. No sick contacts or recent travels. OBJECTIVE: Alert Vital Signs Period Temp Pulse Resp BP Sys/Shine Pulse Ox Last 24 Hr 98.2 F-98.6 F 103-127 17-17 100-114/58-77 98-100 HEENT: No Jaundice, eye redness or discharge, PERRLA, EOMI. Normocephalic, atraumatic. External ears are normal and hearing is grossly intact. No nasal discharge. Neck: Supple, nontender. No palpable adenopathy or thyromegaly. No JVD Chest: Good effort. Clear to auscultation and percussion. Heart: Tachycardia. No S3, rub or murmur Abdomen: Not distended, soft, nontender and no HSM. No rebound or guarding. Normal bowel sounds. Ext: Peripheral pulses intact. No leg edema. Penile laceration with no evidence of infection. Skin: Warm and dry. No petechiae, rash or ecchymosis. Neuro: Alert. Oriented x3. CN 2-12 grossly intact. Sensation grossly intact in all four extremities and DTR are symmetric. Psych: Appropriate mood and affect. Good insight. Home Medications Medication Instructions Recorded Duloxetine HCl [Cymbalta] 60 mg PO DAILY 10/15/19 Enalapril Maleate [Vasotec] 20 mg PO DAILY 10/15/19 Olanzapine [Zyprexa] 20 mg PO DAILY 10/15/19 Oxcarbazepine [Trileptal] 300 mg PO BID 10/15/19 traZODone HCL [Trazodone HCl] 100 mg PO HS 10/15/19 Abnormal Lab Results 10/20/19 10/20/19 10/20/19 14:40 14:40 15:10 WBC 10.2 H Absolute Neuts (auto) 8.3 H Lymphocytes % 7.4 L D-Dimer Sodium 135 L Magnesium 1.7 L Urine Protein 1+ H Urine Ketones 1+ H Urine Bilirubin 2+ H Ur Leukocyte Esterase 1+ H 10/20/19 18:30 WBC Absolute Neuts (auto) Lymphocytes % D-Dimer 578 H Sodium Magnesium Urine Protein Urine Ketones Urine Bilirubin Ur Leukocyte Esterase ASSESSMENT AND PLAN: 1. Alcohol withdrawal/Penile laceration - Sinus tachycardia likely due to alcohol/illicit drug withdrawal. Has only 4 WBCs in the urine and though Leukocyte esterase is positive, Nitrite is negative. Will send for urine toxicology, continue IV NS and treat with librium. Got 4 liters of IV NS in the ER. Will give IV MgSO4. Will get ABG, continue IV fluids and Librium. If tachycardia persists and ABG is supportive, will get a chest CTA to rule out PE. Will implement CIWA librium alcohol withdrawal protocol and do neurochecks. Implement seizure, fall and aspiration precautions. Treat with IV Banana bag, thiamine and folic acid. Monitor and replete electrolytes (Ca,Mg,K,P). Counseled patient about abstaining from alcohol. Will consult repair specialist and refer to alcohol detox upon discharge. EKG shows sinus tachycardia at 135/minute, no ST elevations or depressions and QTc is 429. Troponin is negative. Will get TSH and monitor on telemetry. CXR shows increased interstitial markings. ER staff spoke with the Urologist Dr. Chappell about the penile laceration who he said considering it is over 24 hours old the laceration repair is not immediately emergent and can be evaluated later today or tomorrow morning. Will treat with IV Ancef. Will continue comprehensive care for all of patients comorbid conditions. 2. DM Will implement sliding scale insulin regimen. Provide comprehensive diabetes care with patient teaching and counseling about the importance of adherence to prescribed diabetes regimen, euglycemia, eye care and foot care. 3. Tobacco Use Counseled on risks associated with tobacco use. We will provide patient all the necessary assistance to facilitate smoking cessation and prescribe Nicotine patch. 4. Obesity Counseled on the risks associated with obesity. Will provide patient all the necessary assistance, counseling and positive reinforcement to facilitate weight loss. Consult living advisor. 5. Hypertension - Restart suitable outpatient antihypertensive drugs when clinically appropriate. Revise regimen to ensure [id number] excellent BP control and certified credit counselor patient on the injurious effects of uncontrolled hypertension. Nonpharmacologic measures to control hypertension like weight loss , salt restriction and exercise discussed. Importance of adherence to treatment regimen and attainment of normotension emphasized. 6. DVT prophylaxis - Lovenox 40 mg SQ q 24 hours. 7. Advance directives - Full code
[2019-10-20] MEDS ORDERED: MULTIVITAMINS (DAILY MVI) TABLET (FP) PO ONE (21:00)
[2019-10-20] MEDS ORDERED: chlordiazePOXIDE HCL 25 MG CAPSULE PO STA (21:03)
[2019-10-20] MEDS ORDERED: LACTATED RINGERS SOLUTION 1,000 ML/1,000 ML INFUS.BAG IV SCH (21:30)
[2019-10-20] MEDS ORDERED: CEFAZOLIN 500 MG in DEXTROSE 5%-WATER - 50 ML IVPB SCH (21:30)
--- NOTE | 2019-10-20 21:38 | HP ---
CHIEF COMPLAINT: palpitations PCP: HISTORY OF PRESENT ILLNESS: 44 y.o. M PMH EtOH abuse, tobacco dependence, depression, anxiety, bipolar d/o, schizophrenia, multiple suicide attempts, HTN, DM2, GERD presenting from [facility] for palpitations. The patient had his last day of detox today and was being sent to rehab but came to ED due to the palpitations. He has been experiencing these symptoms for about a week. Denies chest pain but endorses a mild pressure in his chest. The pressure is localized substernally and does not radiate, nonpleuritic, non-reproducible. He was given 0.1mg clonidine 2/2 hypertension which did not relieve his symptoms. On arrival to ED patient was hypotensive to 90s/50s, tachy to 140s. In ED was given 162mg ASA, 4L IVF. EKG showing sinus tachycardia, rate 135, no ST changes. Trop negative x1. Patient says he has had similar symptoms in the past, usually after binge drinking episodes. Secondly the patient is presenting with a dorsal penile laceration. 2 days ago he was zippering his pants and his penis was caught in the zipper. Initially he was having penile pain but now he is only experiencing pain with walking d/t friction motion of his pants on the lesion, or when he gets an erection. The lesion has not progressed in size, is non-purulent and non- bloody with clear margins. Patient went to [facility] the day of the incident, they dressed it with gauze and sent him home, no abx given at this time. Urology contacted, no acute urologic intervention at this time, will assess in AM. ER course was notable for: (1) 162mg ASA (2) 4L NS (3) Ceftriaxone 1g (4) d-dimer 578 Recent Travel: denies PAST MEDICAL HISTORY: as per hpi PAST SURGICAL HISTORY: cholecystectomy Social History: Smokin cigarettes daily for many years Alcohol: etoh abuse Drugs: marijuana, last use 1 week ago Sexual History: monogomous with 1 female partner. no contraception but recently tested for STDs a few months ago and negative as per patient Allergies No Known Allergies Allergy (Verified 10/20/19 14:44) HOME MEDICATIONS: Home Medications Medication Instructions Recorded Duloxetine HCl [Cymbalta] 60 mg PO DAILY 10/15/19 Enalapril Maleate [Vasotec] 20 mg PO DAILY 10/15/19 Olanzapine [Zyprexa] 20 mg PO DAILY 10/15/19 Oxcarbazepine [Trileptal] 300 mg PO BID 10/15/19 traZODone HCL [Trazodone HCl] 100 mg PO HS 10/15/19 REVIEW OF SYSTEMS + chest pressure, mild diffuse abd tenderness, diarrhea x 1 day 3x today denies KMI, SOB, cough, chills, nausea, vomiting, hematemesis, hematochezia, urinary hesitancy/ retention, dysuria, polyuria, myalgias, parasthesias PHYSICAL EXAMINATION Vital Signs - 24 hr 10/20/19 10/20/19 10/20/19 14:17 15:32 17:31 Temperature 98.2 F 98.6 F Pulse Rate 127 H Pulse Rate [ 124 H 103 H Apical] Respiratory 17 17 Rate Blood Pressure 100/58 L Blood Pressure 100/70 114/77 [Left Arm] O2 Sat by Pulse 98 100 Oximetry (%) 10/20/19 19:35 Temperature Pulse Rate Pulse Rate [ Apical] Respiratory 17 Rate Blood Pressure Blood Pressure [Left Arm] O2 Sat by Pulse 100 Oximetry (%) GENERAL: Awake, alert, and fully oriented, in no acute distress. HEENT: NCAT LUNGS: Breath sounds equal, clear to auscultation bilaterally. No wheezes, and no crackles. No accessory muscle use. HEART: Tachycardic, normal S1 and S2 without murmur, rub or gallop. ABDOMEN: Soft, mild ttp RUQ/RLQ, not distended, normoactive bowel sounds, no guarding, no rebound MUSCULOSKELETAL: Normal range of motion at all joints. No CVA tenderness. : Nontender 2cm dorsal penis lesion. Clean base, nonproductive, nonbloody. No discharge present from urethral meatus. No inguinal lymphadenopathy noted. EXTREMITIES: 2+ pulses, warm, well-perfused. No calf tenderness. No peripheral edema. NEUROLOGICAL: Cranial nerves II-XII intact. Normal speech. Normal gait. PSYCHIATRIC: Appropriate mood and affect. SKIN: Warm, dry, normal turgor, no rashes or lesions noted, normal capillary refill. Laboratory Results - last 24 hr 10/20/19 10/20/19 10/20/19 14:40 14:40 14:40 WBC 10.2 H RBC 5.04 Hgb 15.9 Hct 47.1 MCV 93.5 MCH 31.5 MCHC 33.7 RDW 14.4 Plt Count 210 MPV 8.4 Absolute Neuts (auto) 8.3 H Neutrophils % 81.4 Lymphocytes % 7.4 L Monocytes % 9.8 Eosinophils % 1.2 Basophils % 0.2 Nucleated RBC % 0 PT with INR INR PTT (Actin FS) D-Dimer Sodium 135 L Potassium 5.0 Chloride 101 Carbon Dioxide 26 Anion Gap 8 BUN 17.6 Creatinine 1.1 Est GFR (CKD-EPI)AfAm 92.81 Est GFR (CKD-EPI)NonAf 80.08 Random Glucose 102 Lactic Acid Calcium 9.0 Magnesium 1.7 L Total Bilirubin 0.4 AST 26 ALT 47 Alkaline Phosphatase 88 Creatine Kinase 117 Troponin I < 0.02 Total Protein 7.4 Albumin 4.0 Urine Color Urine Appearance Urine pH Ur Specific [place] Urine Protein Urine Glucose (UA) Urine Ketones Urine Blood Urine Nitrite Urine Bilirubin Urine Urobilinogen Ur Leukocyte Esterase Urine WBC (Auto) Urine RBC (Auto) Urine Casts (Auto) U Epithel Cells (Auto) Urine Bacteria (Auto) 10/20/19 10/20/19 10/20/19 14:40 15:10 15:30 WBC RBC Hgb Hct MCV MCH MCHC RDW Plt Count MPV Absolute Neuts (auto) Neutrophils % Lymphocytes % Monocytes % Eosinophils % Basophils % Nucleated RBC % PT with INR 10.60 INR 0.90 PTT (Actin FS) 34.6 D-Dimer Sodium Potassium Chloride Carbon Dioxide Anion Gap BUN Creatinine Est GFR (CKD-EPI)AfAm Est GFR (CKD-EPI)NonAf Random Glucose Lactic Acid 1.5 Calcium Magnesium Total Bilirubin AST ALT Alkaline Phosphatase Creatine Kinase Troponin I Total Protein Albumin Urine Color Dk yellow Urine Appearance Cloudy Urine pH 5.5 Ur Specific [place] 1.033 Urine Protein 1+ H Urine Glucose (UA) Negative Urine Ketones 1+ H Urine Blood Negative Urine Nitrite Negative Urine Bilirubin 2+ H Urine Urobilinogen 1.0 Ur Leukocyte Esterase 1+ H Urine WBC (Auto) 4 Urine RBC (Auto) 5 Urine Casts (Auto) 24 U Epithel Cells (Auto) 4.5 Urine Bacteria (Auto) 19.6 10/20/19 10/20/19 18:30 18:30 WBC RBC Hgb Hct MCV MCH MCHC RDW Plt Count MPV Absolute Neuts (auto) Neutrophils % Lymphocytes % Monocytes % Eosinophils % Basophils % Nucleated RBC % PT with INR INR PTT (Actin FS) D-Dimer 578 H Sodium Potassium Chloride Carbon Dioxide Anion Gap BUN Creatinine Est GFR (CKD-EPI)AfAm Est GFR (CKD-EPI)NonAf Random Glucose Lactic Acid 2.0 Calcium Magnesium Total Bilirubin AST ALT Alkaline Phosphatase Creatine Kinase Troponin I Total Protein Albumin Urine Color Urine Appearance Urine pH Ur Specific [place] Urine Protein Urine Glucose (UA) Urine Ketones Urine Blood Urine Nitrite Urine Bilirubin Urine Urobilinogen Ur Leukocyte Esterase Urine WBC (Auto) Urine RBC (Auto) Urine Casts (Auto) U Epithel Cells (Auto) Urine Bacteria (Auto) ASSESSMENT/PLAN: 44 y.o. M PMH EtOH abuse, tobacco dependence, depression, anxiety, bipolar d/o, schizophrenia, multiple suicide attempts, HTN, DM2, GERD presenting for palpitations #Sinus tachycardia -EKG showing sinus tachy rate 135, no ST/T changes, qtc 429. No S1Q3T3 pattern seen -Trop neg x1 f/u repeat -Hypotensive s/p 0.1mg clonidine, BP now 140s/70s, hasnt received home enalapril, giving stat order now-- continue to monitor vitals -likely 2/2 etoh WD. -f/u ABG. If signs of respiratory distress can get CTA to r/o PE, as d-dimer slightly elevated *Update: ABG showing pO2 74, elevated a-a- gradient. CTA chest ordered to r/o PE-- prelim read negative for PE* -CXR negative for acute pathology -f/u TSH, urine toxicology -telemetry monitoring #EtOH withdrawal -stat librium dose-- librium protocol initiated starting at 15mg today as patient exhibiting signs of WD, CIWA 11 -continue CIWA checks -multivitamin, thiamine, folic acid daily -banana bag now -continue IVF -fall/ seizure/ aspiration precautions -CIWA checks #Penis laceration -no acute signs of infection on physical exam -mild leukocytosis 10.2, f/u AM cbc -afebrile -s/p 1g ceftriaxone in ED -UA: 1+ LE but minimal bateria/ wbc -giving ancef 1g q8h for soft tissue infxn ppx -Urology contacted in ED, no emergent need for acute urologic intervention. Will assess patient in AM #Tobacco dependence -nicoderm patch 14 -ctm #HTN -giving stat dose enalapril 20mg as patient missed his AM dose today -will reinstate meds for tomorrow #DM -BGMs ACHS -ISS protocol -diabetic diet #GERD -stable for now -pepcid 20mg daily #Depression, anxiety -continue home meds: trazadone 100/d, cymbalta 60/d #bipolar d/o -continue trilepta 300mg bid #Schizophrenia -continue zyprexa 20mg/d #FEN LR @83mL/hr mag repleted -diabetic, na controlled diet #PPX -DVT: LVX 40sq daily -GI: pepcid 20mg daily #Dispo telemetry Visit type - Emergency Visit Emergency Visit: Yes ED Registration Date: 10/20/19 Care time: The patient presented to the Emergency Department on the above date and was hospitalized for further evaluation of their emergent condition. - New Patient This patient is new to me today: Yes Date on this admission: 10/21/19 - Critical Care Critical Care patient: No ATTENDING PHYSICIAN STATEMENT I saw and evaluated the patient. I reviewed the resident's note and discussed the case with the resident. I agree with the resident's findings and plan as documented. SUBJECTIVE: OBJECTIVE: ASSESSMENT AND PLAN:
[2019-10-20] MEDS ORDERED: FOLIC ACID INJECTION - 1 MG, THIAMINE HCL 100 MG, MULTIVIT INJECTION ADULT 10 ML in SOD... IVPB ONE (22:00)
[2019-10-20 22:10] LABS: ARTERIAL BLD GAS O2 SATURATION 95.5 % (95-98); ARTERIAL BLOOD GAS BASE EXCESS 0.3 meq/l (-2-2); ARTERIAL BLOOD GAS PCO2 37.8 mmHg (35-45); ARTERIAL BLOOD GAS PO2 74.2 mmHg (80-100); ARTERIAL BLOOD GAS pH 7.42 (7.35-7.45)
[2019-10-20] MEDS ORDERED: ENALAPRIL MALEATE 10 MG TABLET (FP) PO ONE (22:22)
[2019-10-20] MEDS ORDERED: IBUPROFEN 400 MG TABLET (FP) PO ONE (22:23)
[2019-10-20] MEDS ORDERED: ceFAZolin SODIUM 1 GM VIAL ONE (22:25)
[2019-10-20] MEDS ORDERED: DEXTROSE 5%-WATER - 50 ML IVPB ONE (22:26)
[2019-10-20] MEDS: NICOTINE 14 MG/24 HOURS TOPICAL PATCH TD SCH (22:31)
[2019-10-20] MEDS: CEFAZOLIN 1 GM in DEXTROSE 5%-WATER - 50 ML IVPB SCH (22:31)
[2019-10-21] MEDS: CEFAZOLIN 1 GM in DEXTROSE 5%-WATER - 50 ML IVPB SCH ×3 (03:16→17:11)
[2019-10-21 03:43] VITALS: BMI 33.9
[2019-10-21] MEDS ORDERED: ceFAZolin SODIUM 1 GM VIAL ONE ×3 (04:13→17:09)
[2019-10-21] MEDS ORDERED: DEXTROSE 5%-WATER - 50 ML IVPB ONE ×3 (04:14→17:09)
[2019-10-21] MEDS ORDERED: chlordiazePOXIDE HCL 10 MG CAPSULE PO PRN (05:10)
[2019-10-21] MEDS ORDERED: PROMETHAZINE HCL 25 MG TABLET PO ONE (05:39)
[2019-10-21] MEDS: INSULIN SLIDING SCALE (NOVOLOG) 1 VIAL SQ SCH ×3 (06:13→17:04)
[2019-10-21 07:59] LABS: BASO % 0.2 % (0-2.0); EOS % 2.6 % (0-4.5); HEMATOCRIT 40.9 % (35.4-49); HEMOGLOBIN 14.1 GM/dL (11.7-16.9); LYMPH % 17.5 % (8-40); MCH 32.1 pg (25.7-33.7); MCHC 34.5 g/dl (32.0-35.9); MEAN PLT VOLUME 8.6 fl (7.5-11.1); MONO % 16.3 % (3.8-10.2); NEUT % 63.4 % (42.8-82.8); PLATELET COUNT 181 K/MM3 (134-434); RDW 14.5 % (11.9-15.9); WHITE BLOOD COUNT 5.5 K/mm3 (4.0-10.0)
[2019-10-21 08:41] LABS: ALBUMIN 3.6 g/dl (3.4-5.0); BILIRUBIN,TOTAL 0.8 mg/dL (0.2-1); BLOOD UREA NITROGEN 11.7 mg/dL (7-18); CALCIUM 8.5 mg/dL (8.5-10.1); CREATININE 0.7 mg/dL (0.55-1.3); MAGNESIUM 1.9 mg/dL (1.8-2.4); POTASSIUM 4.2 mmol/L (3.5-5.1); TOT PROT 6.7 g/dl (6.4-8.2)
--- NOTE | 2019-10-21 08:45 | EKG ---
Test Reason : Blood Pressure : / mmHG Vent. Rate : 135 BPM Atrial Rate : 135 BPM P-R Int : 134 ms QRS Dur : 072 ms QT Int : 286 ms P-R-T Axes : 037 -01 048 degrees QTc Int : 429 ms SINUS TACHYCARDIA OTHERWISE NORMAL ECG WHEN COMPARED WITH ECG OF 20-OCT-2019 12:56, NO SIGNIFICANT CHANGE WAS FOUND Confirmed by MD EDMONDOSN PENG ([id number]) on 10/21/2019 8:45:08 AM Referred By: Confirmed By:ANYA EDMONDSON MD
[2019-10-21] MEDS: ENOXAPARIN NA (PORCINE) 40 MG/0.4 ML DISP.SYRIN SQ SCH (09:39)
[2019-10-21] MEDS: DULoxetine HCL 30 MG CAPSULE.DR PO SCH (09:40)
[2019-10-21] MEDS: FOLIC ACID 1 MG TABLET (FP) PO SCH (09:40)
[2019-10-21] MEDS: FAMOTIDINE 20 MG TABLET PO SCH (09:40)
[2019-10-21] MEDS: OXcarbazepine 300 MG TABLET (UD) PO SCH ×2 (09:40→23:24)
[2019-10-21] MEDS: NICOTINE 14 MG/24 HOURS TOPICAL PATCH TD SCH (09:40)
[2019-10-21] MEDS: OLANZapine 10 MG TABLET PO SCH (09:41)
[2019-10-21] MEDS: ENALAPRIL MALEATE 10 MG TABLET (FP) PO SCH (09:41)
[2019-10-21] MEDS: PANTOPRAZOLE 20 MG TABLET PO SCH (09:41)
[2019-10-21] MEDS: THIAMINE HCL 100 MG TABLET (FP) PO SCH (09:41)
--- NOTE | 2019-10-21 09:52 | ECHO ---
Version: 1 Name: LORRAINE ARORA Exam: Adult Echocardiogram Study Date: 10/21/2019, 9:15 AM Age: 44 Years MMode/2D Measurements & Calculations IVSd: 1.29 cm LVIDs: 2.6 cm LVIDd: 3.9 cm LVPWd: 1.25 cm LAV (MOD-bp): 47.0 ml ACS: 1.96 cm Ao root diam: 3.1 cm LVOT diam: 2.01 cm LA dimension: 3.7 cm Doppler Measurements & Calculations MV E max taiwo: 74.0 cm/sec Med E/e': 11.3 MV A max taiwo: 88.4 cm/sec Med Peak E' Taiwo: 6.5 cm/sec MV E/A: 0.84 Lat E/e': 8.3 Lat Peak E' Taiwo: 8.9 cm/sec Ao max P.8 mmHg ISABELA(I,D): 3.4 cm Ao mean P.3 mmHg LV V1 mean: 93.6 cm/sec Ao V2 max: 148.0 cm/sec LV V1 mean P.2 mmHg TR max taiwo: 203.6 cm/sec TR max P.6 mmHg Left Ventricle The left ventricle is normal in size. There is mild concentric left ventricular hypertrophy. The lef t ventricle is hyperdynamic. Ejection Fraction = >70%. The transmitral spectral Doppler flow pattern i s suggestive of impaired LV relaxation. Right Ventricle The right ventricle is normal in size and function. Atria Normal left and right atrial size and function. Mitral Valve The mitral valve is normal in structure and function. There is mild mitral regurgitation. Tricuspid Valve The tricuspid valve is normal in structure and function. There is mild tricuspid regurgitation. Aortic Valve The aortic valve is normal in structure and function. Pulmonic Valve The pulmonic valve leaflets are thin and pliable; valve motion is normal. Great Vessels The aortic root is normal size. Normal aortic arch, descending and ascending aorta. Pericardium/Pleura There is no pericardial effusion. Summary Statements The left ventricle is normal in size. There is mild concentric left ventricular hypertrophy. The left ventricle is hyperdynamic. Ejection Fraction = >70%. The transmitral spectral Doppler flow pattern is suggestive of impaired LV relaxation. The right ventricle is normal in size and function. Normal left and right atrial size and function. The mitral valve is normal in structure and function. There is mild mitral regurgitation. The tricuspid valve is normal in structure and function. There is mild tricuspid regurgitation. The aortic valve is normal in structure and function. The pulmonic valve leaflets are thin and pliable; valve motion is normal. The aortic root is normal size. Normal aortic arch, descending and ascending aorta There is no pericardial effusion. Alvaro Niremberg 10/21/2019, 9:52 AM Ordering Physician: Kelley Patel Referring Physician: KELLEY PATEL Performed By: Izabel Garner
--- NOTE | 2019-10-21 15:24 | PN ---
Physical Exam: SUBJECTIVE: Patient seen and examined at the bedside. Stated that he was feeling better. Denied further instances of palpitations. Stated had diarrhea yesterday but no further episodes. Denied cp, sob, abd pain, n/v, fever, chills , headaches, dizziness, lightheadedness, bleeding, dysuria, hematuria, purulence from the penis, calf tenderness. OBJECTIVE: Vital Signs Period Temp Pulse Resp BP Sys/Shine Pulse Ox Last 24 Hr 97.7 F-98.6 F 103-124 17-20 100-143/64-99 98-100 GENERAL: The patient is awake, alert, and fully oriented, in no acute distress. HEAD: Normal with no signs of trauma. Numerous tattoos. EYES: PERRL, extraocular movements intact, conjunctiva clear. ENT: Oropharynx clear without exudates, moist mucous membranes. LUNGS: Breath sounds equal, clear to auscultation bilaterally, no wheezes, no crackles, no accessory muscle use. HEART: Regular rate and rhythm, S1, S2 without murmur. ABDOMEN: Soft, nontender, nondistended, normoactive bowel sounds, no guarding, no rebound, no masses. GENITAL: Noted skin tear on the dorsal side of the penis, clean without blood or purulence, no tenderness. EXTREMITIES: 2+ pulses, warm, well-perfused, no edema. NEUROLOGICAL: Cranial nerves II through XII grossly intact. 5/5 muscle strength upper and lower extremities bilaterally. PSYCH: Normal mood, normal affect. SKIN: Warm, dry, normal turgor. Laboratory Results - last 24 hr 10/20/19 10/20/19 10/20/19 14:40 14:40 15:10 WBC RBC Hgb Hct MCV MCH MCHC RDW Plt Count MPV Absolute Neuts (auto) Neutrophils % Lymphocytes % Monocytes % Eosinophils % Basophils % Nucleated RBC % D-Dimer Anticoagulation Therapy Puncture Site ABG pH ABG pCO2 at Pt Temp ABG pO2 at Pt Temp ABG HCO3 ABG O2 Sat (Measured) ABG O2 Content ABG Base Excess Armaan Test O2 Delivery Device Oxygen Flow Rate Vent Mode Vent Rate Mechanical Rate Pressure Support Vent Sodium 135 L Potassium 5.0 Chloride 101 Carbon Dioxide 26 Anion Gap 8 BUN 17.6 Creatinine 1.1 Est GFR (CKD-EPI)AfAm 92.81 Est GFR (CKD-EPI)NonAf 80.08 POC Glucometer Random Glucose 102 Hemoglobin A1c % Lactic Acid Calcium 9.0 Magnesium 1.7 L Total Bilirubin 0.4 AST 26 ALT 47 Alkaline Phosphatase 88 Creatine Kinase 117 Troponin I < 0.02 Total Protein 7.4 Albumin 4.0 TSH Urine Color Dk yellow Urine Appearance Cloudy Urine pH 5.5 Ur Specific [place] 1.033 Urine Protein 1+ H Urine Glucose (UA) Negative Urine Ketones 1+ H Urine Blood Negative Urine Nitrite Negative Urine Bilirubin 2+ H Urine Urobilinogen 1.0 Ur Leukocyte Esterase 1+ H Urine WBC (Auto) 4 Urine RBC (Auto) 5 Urine Casts (Auto) 24 U Epithel Cells (Auto) 4.5 Urine Bacteria (Auto) 19.6 10/20/19 10/20/19 10/20/19 15:30 18:30 18:30 WBC RBC Hgb Hct MCV MCH MCHC RDW Plt Count MPV Absolute Neuts (auto) Neutrophils % Lymphocytes % Monocytes % Eosinophils % Basophils % Nucleated RBC % D-Dimer 578 H Anticoagulation Therapy Puncture Site ABG pH ABG pCO2 at Pt Temp ABG pO2 at Pt Temp ABG HCO3 ABG O2 Sat (Measured) ABG O2 Content ABG Base Excess Armaan Test O2 Delivery Device Oxygen Flow Rate Vent Mode Vent Rate Mechanical Rate Pressure Support Vent Sodium Potassium Chloride Carbon Dioxide Anion Gap BUN Creatinine Est GFR (CKD-EPI)AfAm Est GFR (CKD-EPI)NonAf POC Glucometer Random Glucose Hemoglobin A1c % Lactic Acid 1.5 2.0 Calcium Magnesium Total Bilirubin AST ALT Alkaline Phosphatase Creatine Kinase Troponin I Total Protein Albumin TSH Urine Color Urine Appearance Urine pH Ur Specific [place] Urine Protein Urine Glucose (UA) Urine Ketones Urine Blood Urine Nitrite Urine Bilirubin Urine Urobilinogen Ur Leukocyte Esterase Urine WBC (Auto) Urine RBC (Auto) Urine Casts (Auto) U Epithel Cells (Auto) Urine Bacteria (Auto) 10/20/19 10/20/19 10/21/19 21:45 22:00 05:07 WBC RBC Hgb Hct MCV MCH MCHC RDW Plt Count MPV Absolute Neuts (auto) Neutrophils % Lymphocytes % Monocytes % Eosinophils % Basophils % Nucleated RBC % D-Dimer Anticoagulation Therapy No Result Required. Puncture Site Right radial ABG pH 7.42 ABG pCO2 at Pt Temp 37.8 ABG pO2 at Pt Temp 74.2 L ABG HCO3 24.0 ABG O2 Sat (Measured) 95.5 ABG O2 Content 19.0 ABG Base Excess 0.3 Armaan Test No Result Required. O2 Delivery Device No Result Required. Oxygen Flow Rate No Vent Mode No Result Required. Vent Rate No Result Required. Mechanical Rate No Result Required. Pressure Support Vent No Result Required. Sodium Potassium Chloride Carbon Dioxide Anion Gap BUN Creatinine Est GFR (CKD-EPI)AfAm Est GFR (CKD-EPI)NonAf POC Glucometer 95 Random Glucose Hemoglobin A1c % Lactic Acid Calcium Magnesium Total Bilirubin AST ALT Alkaline Phosphatase Creatine Kinase Troponin I < 0.02 Total Protein Albumin TSH Urine Color Urine Appearance Urine pH Ur Specific [place] Urine Protein Urine Glucose (UA) Urine Ketones Urine Blood Urine Nitrite Urine Bilirubin Urine Urobilinogen Ur Leukocyte Esterase Urine WBC (Auto) Urine RBC (Auto) Urine Casts (Auto) U Epithel Cells (Auto) Urine Bacteria (Auto) 10/21/19 10/21/19 10/21/19 06:22 06:22 06:22 WBC 5.5 RBC 4.40 Hgb 14.1 Hct 40.9 MCV 93.0 MCH 32.1 MCHC 34.5 RDW 14.5 Plt Count 181 MPV 8.6 Absolute Neuts (auto) 3.5 Neutrophils % 63.4 D Lymphocytes % 17.5 D Monocytes % 16.3 H Eosinophils % 2.6 D Basophils % 0.2 Nucleated RBC % 0 D-Dimer Anticoagulation Therapy Puncture Site ABG pH ABG pCO2 at Pt Temp ABG pO2 at Pt Temp ABG HCO3 ABG O2 Sat (Measured) ABG O2 Content ABG Base Excess Armaan Test O2 Delivery Device Oxygen Flow Rate Vent Mode Vent Rate Mechanical Rate Pressure Support Vent Sodium 140 Potassium 4.2 Chloride 107 Carbon Dioxide 25 Anion Gap 8 BUN 11.7 Creatinine 0.7 Est GFR (CKD-EPI)AfAm 131.17 Est GFR (CKD-EPI)NonAf 113.17 POC Glucometer Random Glucose 80 Hemoglobin A1c % 5.3 Lactic Acid Calcium 8.5 Magnesium 1.9 Total Bilirubin 0.8 AST 31 ALT 47 Alkaline Phosphatase 80 Creatine Kinase Troponin I Total Protein 6.7 Albumin 3.6 TSH 1.96 Urine Color Urine Appearance Urine pH Ur Specific [place] Urine Protein Urine Glucose (UA) Urine Ketones Urine Blood Urine Nitrite Urine Bilirubin Urine Urobilinogen Ur Leukocyte Esterase Urine WBC (Auto) Urine RBC (Auto) Urine Casts (Auto) U Epithel Cells (Auto) Urine Bacteria (Auto) 10/21/19 11:23 WBC RBC Hgb Hct MCV MCH MCHC RDW Plt Count MPV Absolute Neuts (auto) Neutrophils % Lymphocytes % Monocytes % Eosinophils % Basophils % Nucleated RBC % D-Dimer Anticoagulation Therapy Puncture Site ABG pH ABG pCO2 at Pt Temp ABG pO2 at Pt Temp ABG HCO3 ABG O2 Sat (Measured) ABG O2 Content ABG Base Excess Armaan Test O2 Delivery Device Oxygen Flow Rate Vent Mode Vent Rate Mechanical Rate Pressure Support Vent Sodium Potassium Chloride Carbon Dioxide Anion Gap BUN Creatinine Est GFR (CKD-EPI)AfAm Est GFR (CKD-EPI)NonAf POC Glucometer 99 Random Glucose Hemoglobin A1c % Lactic Acid Calcium Magnesium Total Bilirubin AST ALT Alkaline Phosphatase Creatine Kinase Troponin I Total Protein Albumin TSH Urine Color Urine Appearance Urine pH Ur Specific [place] Urine Protein Urine Glucose (UA) Urine Ketones Urine Blood Urine Nitrite Urine Bilirubin Urine Urobilinogen Ur Leukocyte Esterase Urine WBC (Auto) Urine RBC (Auto) Urine Casts (Auto) U Epithel Cells (Auto) Urine Bacteria (Auto) Active Medications Generic Name Dose Route Start Last Admin Trade Name Freq PRN Reason Stop Dose Admin Chlordiazepoxide HCl 10 mg 10/23/19 00:00 Librium - PO 10/23/19 23:59 Q12H PRN Signs/symptoms of Withdrawal Chlordiazepoxide HCl 10 mg 10/21/19 05:10 10/21/19 05:40 Librium - PO 10/22/19 05:09 10 mg Q8H PRN Administration Signs/symptoms of Withdrawal Duloxetine HCl 60 mg 10/21/19 10:00 10/21/19 09:40 Cymbalta - PO 60 mg DAILY IRVING Administration Enalapril Maleate 20 mg 10/21/19 10:00 10/21/19 09:41 Vasotec - PO 20 mg DAILY IRVING Administration Enoxaparin Sodium 40 mg 10/21/19 10:00 10/21/19 09:39 Lovenox - SQ 40 mg DAILY IRVING Administration Famotidine 20 mg 10/21/19 10:00 10/21/19 09:40 Pepcid - PO 20 mg DAILY IRVING Administration Folic Acid 1 mg 10/21/19 10:00 10/21/19 09:40 Folic Acid - PO 1 mg DAILY IRVING Administration Lactated Ringer's 1,000 ml in 1,000 mls @ 83 mls/hr 10/20/19 21:30 10/20/19 22:32 Lactated Ringers Solution IV 83 mls/hr ASDIR IRVING Administration Cefazolin Sodium 1 gm/ 50 mls @ 100 mls/hr 10/20/19 21:45 10/21/19 09:39 Dextrose IVPB 100 mls/hr Q8H-IV IRVING Administration Insulin Aspart 1 vial 10/21/19 07:00 10/21/19 11:31 Novolog Vial Sliding Scale - SQ Not Given ACHS IRVING Protocol Nicotine 14 mg 10/20/19 21:45 10/21/19 09:40 Nicoderm Patch - TD 14 mg DAILY IRVING Administration Olanzapine 20 mg 10/21/19 10:00 10/21/19 09:41 Zyprexa - PO 20 mg DAILY IRVING Administration Oxcarbazepine 300 mg 10/21/19 10:00 10/21/19 09:40 Trileptal - PO 300 mg BID IRVING Administration Pantoprazole Sodium 20 mg 10/21/19 10:00 10/21/19 09:41 Protonix - PO 20 mg DAILY IRVING Administration Thiamine HCl 100 mg 10/21/19 10:00 10/21/19 09:41 Vitamin B1 - PO 100 mg DAILY IRVING Administration Trazodone HCl 100 mg 10/21/19 22:00 Desyrel - PO HS IRVING ASSESSMENT/PLAN: Jovanni Azul is a 44 year old male with a past medical history EtOH abuse, tobacco dependence, depression, anxiety, bipolar d/o, schizophrenia, multiple suicide attempts, HTN, DM2, GERD admitted for palpitations. Sinus tachycardia - likely in setting of anxiety, recent completion of alcohol detox program - EKG showing sinus tachy rate 135, no ST/T changes, qtc 429. No S1Q3T3 pattern seen. No indication of right heart strain - Trop neg x2 - ABG showing pO2 74, elevated a-a- gradient. low suspicion for PE (Wells 1.5 low risk). CTA chest ordered to r/o PE noting no large central pulmonary emboli - Bilateral duplex studies negative for DVT - echo showing EF 70%, mild concentric LVH, hyperdynamic LV, impaired LV relaxation, mild mitral and tricuspid regurg, thin and pliable pulmonic valve leaflets - CXR negative for acute pathology - TSH within normal limits - telemetry monitoring Hx of Alcohol Use - multivitamin, thiamine, folic acid daily - Librium prn for withdrawal, had recently completed his Librium protocol Penis laceration - no acute signs of infection on physical exam - mild leukocytosis continues, moniotr - afebrile - UA: 1+ LE but minimal bateria/ wbc - giving ancef 1g q8h for soft tissue infxn ppx - Urology consulted, spoken with Dr. Chappell, who will see the patient - troponemal test ordered Tobacco dependence - nicoderm patch 14 HTN - continue home enalapril 20mg daily DM - BGMs ACHS - ISS protocol GERD - pepcid 20mg daily Depression, anxiety - continue home meds: trazadone 100mg daily, cymbalta 60mg daily Bipolar Disorder - continue trilepta 300mg bid Schizophrenia - continue zyprexa 20mg/d FEN - no standing fluids - continue to monitor electrolytes and replete as necessary - diabetic, na controlled diet PPX - Lovenox 40mg subq daily Dispo - continue to monitor on telemetry Visit type - Emergency Visit Emergency Visit: Yes ED Registration Date: 10/20/19 Care time: The patient presented to the Emergency Department on the above date and was hospitalized for further evaluation of their emergent condition. - New Patient This patient is new to me today: Yes Date on this admission: 10/21/19 - Critical Care Critical Care patient: No
--- NOTE | 2019-10-21 17:24 | PN ---
Teaching Attending Note Name of Resident: Yoel Kathleen ATTENDING PHYSICIAN STATEMENT I saw and evaluated the patient. I reviewed the resident's note and discussed the case with the resident. I agree with the resident's findings and plan as documented. SUBJECTIVE: seen around 10 am No fever or chills. No pain. no KIM . no palpitations. he reported a lot of life stresses and a lot of anxiety. he admits to alcohol and Marijuana use . No cocaine reported diarrhea all day yesterday.no dysuria or penile discharge OBJECTIVE: NAD CV: RRR, NO MRG. Lungs: CTAB Abd: soft, NT, ND , NL BS Ext: No edema or erythema : NL hair distribution. A small laceration ( 1 cm ) on anterior part of the dorsal penis with a clean base and a skin flap. No bleeding. no discharge form penis ASSESSMENT AND PLAN: 44 y/o man with h/o ETOH , Marijuana use, Nicotine dependence, Schizophrenia, previous suicidal attempts , Bipolar, GERD, depression , anxiety, Asthma, DM, HTN, CCY, ETOH withdrawal seizures, and other medical problems who presented from [facility] after finishing his detox with palpitations . he was found to have sinus tachycardia. 1- Sinus tachy: likely due to anxiety, volume depletion given diarrhea. EKG reviewed. No signs of R heart strain. CTA is inconclusive but clinical suspicion for PE is low. US of LE was obtained and is neg for DVT. no further w/u for this - give IVF now , 1 L - tele 2- Penile laceration: due to trauma. it does not seem to be infectious - dc cefazolin . no signs of infection - uro consult pending for evaluation and possible repair. - get Tremponemal Abs 3- Irregular liver border on Ct scan . h/o alcoholism. f/u with GI as out pt 4- H/o Schizophrenia and Bipolar. cont home meds 5- ETOH use: was treated with librium and finished the detox protocol. dc standing librium and cont PRN 6- H/o DM : A1c 5.3 % after he lost weight 7- HTN: cont Enalapril DVT PX : Lovenox
[2019-10-21] MEDS ORDERED: SODIUM CHLORIDE 1,000 ML IV STA (17:26)
--- NOTE | 2019-10-21 17:41 | CONSULT ---
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
[2019-10-21] MEDS ORDERED: SODIUM CHLORIDE 1,000 ML IV SCH (18:00)
[2019-10-21] MEDS ORDERED: BACITRACIN 15 GM TUBE TOPICAL OINTMENT TP ONE (18:25)
[2019-10-21] MEDS ORDERED: traZODone HCL 100 MG TABLET (FP) PO SCH (22:00)
[2019-10-21] MEDS ORDERED: traZODone HCL 50 MG TABLET (FP) ONE (22:29)
[2019-10-21] MEDS ORDERED: PT OWN MED DRAWER 7, Y5N ONE (22:30)
[2019-10-21] MEDS: BACITRACIN 15 GM TUBE TOPICAL OINTMENT TP SCH (23:24)
[2019-10-22] MEDS ORDERED: chlordiazePOXIDE 5 MG CAPSULE PO SCH (05:00)
[2019-10-22 07:45] LABS: BASO % 0.2 % (0-2.0); EOS % 2.4 % (0-4.5); HEMATOCRIT 41.4 % (35.4-49); HEMOGLOBIN 14.3 GM/dL (11.7-16.9); LYMPH % 23.2 % (8-40); MCHC 34.7 g/dl (32.0-35.9); MEAN CELL VOLUME 92.2 fl (80-96); MEAN PLT VOLUME 8.6 fl (7.5-11.1); MONO % 17.5 % (3.8-10.2); NEUT % 56.7 % (42.8-82.8); PLATELET COUNT 182 K/MM3 (134-434); RBC 4.48 M/mm3 (4.00-5.60); RDW 14.2 % (11.9-15.9)
[2019-10-22 08:05] LABS: CALCIUM 8.5 mg/dL (8.5-10.1); CREATININE 0.7 mg/dL (0.55-1.3); POTASSIUM 3.9 mmol/L (3.5-5.1)
[2019-10-22] MEDS ORDERED: PT OWN MED DRAWER 7, Y5N ONE (09:07)
[2019-10-22] MEDS: FOLIC ACID 1 MG TABLET (FP) PO SCH (09:09)
[2019-10-22] MEDS: DULoxetine HCL 30 MG CAPSULE.DR PO SCH (09:09)
[2019-10-22] MEDS: PANTOPRAZOLE 20 MG TABLET PO SCH (09:09)
[2019-10-22] MEDS: ENOXAPARIN NA (PORCINE) 40 MG/0.4 ML DISP.SYRIN SQ SCH (09:09)
[2019-10-22] MEDS: FAMOTIDINE 20 MG TABLET PO SCH (09:10)
[2019-10-22] MEDS: THIAMINE HCL 100 MG TABLET (FP) PO SCH (09:10)
[2019-10-22] MEDS: BACITRACIN 15 GM TUBE TOPICAL OINTMENT TP SCH (09:10)
[2019-10-22] MEDS: NICOTINE 14 MG/24 HOURS TOPICAL PATCH TD SCH (09:10)
[2019-10-22] MEDS: ENALAPRIL MALEATE 10 MG TABLET (FP) PO SCH (09:10)
[2019-10-22] MEDS: OLANZapine 10 MG TABLET PO SCH (09:11)
[2019-10-22] MEDS: OXcarbazepine 300 MG TABLET (UD) PO SCH (09:11)
[2019-10-22 10:41] VITALS: BP 152/82; PULSE 112; TEMP 97.8
--- NOTE | 2019-10-22 11:24 | DS ---
Physical Exam: SUBJECTIVE: Patient seen and examined at the bedside. Stated he was feeling better and that his palpitations had subsided. Denied acute complaints of cp, sob, abd pain, n/v/c/d, headaches, dizziness, lightheadedness, fever, chills, focal or generalized weakness, numbness, tingling. OBJECTIVE: Vital Signs Period Temp Pulse Resp BP Sys/Shine Pulse Ox Last 24 Hr 97.8 F-98.1 F 88-118 18-20 114-152/73-98 95 PHYSICAL EXAM GENERAL: The patient is awake, alert, and fully oriented, in no acute distress. HEAD: Normal with no signs of trauma. Numerous tattoos. EYES: PERRL, extraocular movements intact, conjunctiva clear. ENT: Oropharynx clear without exudates, moist mucous membranes. LUNGS: Breath sounds equal, clear to auscultation bilaterally, no wheezes, no crackles, no accessory muscle use. HEART: Regular rate and rhythm, S1, S2 without murmur. ABDOMEN: Soft, nontender, nondistended, normoactive bowel sounds, no guarding, no rebound, no masses. GENITAL: Noted skin tear on the dorsal side of the penis, clean without blood or purulence, no tenderness. EXTREMITIES: 2+ pulses, warm, well-perfused, no edema. NEUROLOGICAL: Cranial nerves II through XII grossly intact. 5/5 muscle strength upper and lower extremities bilaterally. PSYCH: Normal mood, normal affect. SKIN: Warm, dry, normal turgor. LABS Laboratory Results - last 24 hr 10/21/19 10/21/19 10/22/19 11:23 17:00 05:48 WBC 5.0 RBC 4.48 Hgb 14.3 Hct 41.4 MCV 92.2 MCH 32.0 MCHC 34.7 RDW 14.2 Plt Count 182 MPV 8.6 Absolute Neuts (auto) 2.8 Neutrophils % 56.7 Lymphocytes % 23.2 D Monocytes % 17.5 H Eosinophils % 2.4 Basophils % 0.2 Nucleated RBC % 0 Sodium Potassium Chloride Carbon Dioxide Anion Gap BUN Creatinine Est GFR (CKD-EPI)AfAm Est GFR (CKD-EPI)NonAf POC Glucometer 99 94 Random Glucose Calcium Magnesium 10/22/19 05:48 WBC RBC Hgb Hct MCV MCH MCHC RDW Plt Count MPV Absolute Neuts (auto) Neutrophils % Lymphocytes % Monocytes % Eosinophils % Basophils % Nucleated RBC % Sodium 139 Potassium 3.9 Chloride 105 Carbon Dioxide 26 Anion Gap 8 BUN 11.0 Creatinine 0.7 Est GFR (CKD-EPI)AfAm 131.17 Est GFR (CKD-EPI)NonAf 113.17 POC Glucometer Random Glucose 94 Calcium 8.5 Magnesium 2.0 HOSPITAL COURSE: Jovanni Azul is a 44 year old male with a past medical history EtOH abuse, tobacco dependence, depression, anxiety, bipolar d/o, schizophrenia, multiple suicide attempts, HTN, DM2, GERD admitted for palpitations. EKG noted sinus tachy rate 135, no ST/T changes, qtc 429, No S1Q3T3 pattern seen, no indication of right heart strain. Troponins were negative x2. CTA performed which did not note any large central pulmonary emboli. Bilateral duplex studies negative for DVT. Echo noted EF 70%, mild concentric LVH, hyperdynamic LV, impaired LV relaxation, mild mitral and tricuspid regurg, thin and pliable pulmonic valve leaflets. TSH within normal limits. No events were noted on the monitor. Patient was advised to follow up with cardiology for these findings. Patient was seen by urology for a penis laceration and was advised to follow up outpatient for repair of the laceration. CT noted irregular liver edge. Patient was advised to follow up with gastroenterology outpatient for these findings. Patient was advised to follow up with his PCP, GI, cardiology, addiction medicine, and urology. Patient was in agreement with the plan. Patent was discharged in stable medical condition. Date of Admission:10/20/19 Date of Discharge: 10/22/19 Minutes to complete discharge: 35 Discharge Summary Problems reviewed: Yes Reason For Visit: UTI LACERATION OF PENIS Condition: Improved - Instructions Diet, Activity, Other Instructions: You were admitted for palpitations. You had an echocardiogram which showed that you have some heart enlargement and impaired relaxation of the heart with some valve abnormalities. You are advised to follow up with a carbide tool maker outpatient. You were seen by a urologist for your laceration on the penis for which you will follow up outpatient. MEDICATIONS Apply bacitracin to the penile wound twice a day. REFERRALS Follow up with your primary care physician within 1 week. If you do not have a primary care physician you may follow up with the resident's clinic for which information is provided. Follow up with the urologist, Dr. Chappell for the repair of the penile laceration. Call to make an appointment. Follow up with the carbide tool maker, Dr. Jenkins, within 2 weeks. Follow up the veterinary virologist, Dr. Main, to evaluate your liver as the border is irregular. Follow up with the addiction medicine specialist, Dr. Amaro. SPECIAL INSTRUCTIONS Please avoid drinking alcohol to help reduce your risk of further developing any damage to your heart, liver, kidneys, brain, and other vital organs. If you have any symptoms of chest pain, shortness of breath, lightheadedness, headaches, falls, fevers, pus from the penis or increased bleeding from the injury site or any other general feelings of unwellness please call 911 or go to your nearest emergency room. Referrals: [facility] [Provider Group] - 1 Week Bijan Chappell MD., [Staff Physician] - 1 Week Joe Jenkins MD [Staff Physician] - 2 Weeks Tala Main DO [Staff Physician] - 1 Week Miki Amaro DO [Staff Physician] - 1 Week Disposition: HOME - Home Medications Comprehensive Discharge Medication List: Ambulatory Orders Duloxetine HCl [Cymbalta] 60 mg PO DAILY 10/15/19 Enalapril Maleate [Vasotec] 20 mg PO DAILY 10/15/19 Olanzapine [Zyprexa] 20 mg PO DAILY 10/15/19 Oxcarbazepine [Trileptal] 300 mg PO BID 10/15/19 traZODone HCL [Trazodone HCl] 100 mg PO HS 10/15/19 Bacitracin - [Bacitracin Topical Ointment -] 1 applic TP BID #1 tube 10/21/19 Problem List - Problems (1) Penile laceration Code(s): S31.21XA - LACERATION WITHOUT FOREIGN BODY OF PENIS, INITIAL ENCOUNTER Qualifiers: Encounter type: initial encounter Qualified Code(s): S31.21XA - Laceration without foreign body of penis, initial encounter (2) Tachycardia Code(s): R00.0 - TACHYCARDIA, UNSPECIFIED (3) Acid reflux disease Code(s): K21.9 - GASTRO-ESOPHAGEAL REFLUX DISEASE WITHOUT ESOPHAGITIS Qualifiers: Esophagitis presence: without esophagitis Qualified Code(s): K21.9 - G alberto-esophageal reflux disease without esophagitis (4) Alcohol-induced mood disorder Code(s): F10.94 - ALCOHOL USE, UNSPECIFIED WITH ALCOHOL-INDUCED MOOD DISORDER (5) Anxiety Code(s): F41.9 - ANXIETY DISORDER, UNSPECIFIED (6) Asthma Code(s): J45.909 - UNSPECIFIED ASTHMA, UNCOMPLICATED Qualifiers: Asthma severity: mild Asthma persistence: intermittent Asthma complication type: uncomplicated Qualified Code(s): J45.20 - Mild intermittent asthma, uncomplicated (7) Depression Code(s): F32.9 - MAJOR DEPRESSIVE DISORDER, SINGLE EPISODE, UNSPECIFIED (8) HTN (hypertension) Code(s): I10 - ESSENTIAL (PRIMARY) HYPERTENSION Qualifiers: Hypertension type: unspecified Qualified Code(s): I10 - Essential (primary) hypertension (9) Nicotine dependence Code(s): F17.200 - NICOTINE DEPENDENCE, UNSPECIFIED, UNCOMPLICATED Qualifiers: Nicotine product type: cigarettes Substance use status: uncomplicated Qualified Code(s): F17.210 - Nicotine dependence, cigarettes, uncomplicated (10) PTSD (post-traumatic stress disorder) Code(s): F43.10 - POST-TRAUMATIC STRESS DISORDER, UNSPECIFIED (11) Schizophrenia Code(s): F20.9 - SCHIZOPHRENIA, UNSPECIFIED (12) Type 2 diabetes mellitus Code(s): E11.9 - TYPE 2 DIABETES MELLITUS WITHOUT COMPLICATIONS Qualifiers: Diabetes mellitus complication status: without complication This patient is new to me today: No Emergency Visit: Yes ED Registration Date: 10/20/19 Care time: The patient presented to the Emergency Department on the above date and was hospitalized for further evaluation of their emergent condition. Critical Care patient: No - Discharge Referral Referred to [facility] No
--- NOTE | 2019-10-22 14:02 | EKG ---
Test Reason : Blood Pressure : / mmHG Vent. Rate : 108 BPM Atrial Rate : 108 BPM P-R Int : 150 ms QRS Dur : 076 ms QT Int : 342 ms P-R-T Axes : 026 032 044 degrees QTc Int : 458 ms SINUS TACHYCARDIA OTHERWISE NORMAL ECG WHEN COMPARED WITH ECG OF 20-OCT-2019 13:57, NO SIGNIFICANT CHANGE WAS FOUND Confirmed by LOTUS MORIN MD ([id number]) on 10/22/2019 2:02:06 PM Referred By: ANAHI Confirmed By:LOTUS MORIN MD
--- NOTE | 2019-10-22 15:45 | PN ---
Teaching Attending Note Name of Resident: Yoel Kathleen ATTENDING PHYSICIAN STATEMENT I saw and evaluated the patient. I reviewed the resident's note and discussed the case with the resident. I agree with the resident's findings and plan as documented. SUBJECTIVE: seen this am no fever or chills. No N/V. No palpitations . feels more relaxed compared to yesterday OBJECTIVE: NAD CV: RRR, NO MRG. Lungs: CTAB Ext: No edema or erythema ASSESSMENT AND PLAN: patient was discharged yesterday evening but did not have a ride so he did not leave. today his condition is better. exam did not change. tele with no events. He expressed interest in alcohol rehab. [facility] , but no beds were available. He was asked to check with them as out pt No change in plan as outlined in yesterday's note dc home
[2019-10-23] MEDS ORDERED: chlordiazePOXIDE HCL 10 MG CAPSULE PO PRN
[2019-10-23] MEDS ORDERED: chlordiazePOXIDE HCL 10 MG CAPSULE PO SCH (05:00)
[2019-10-24] MEDS ORDERED: chlordiazePOXIDE HCL 10 MG CAPSULE PO ONE (05:00)
== END 2019-10-22 09:56 | disposition home or self-care (01) | DRG 756 ==
LOC: JER 13:50 → JERBED 18:06 → J4W 20:48
PROVIDERS: ADMIT Internal Medicine; ATTEND Internal Medicine
DX: F41.9 Anxiety disorder, unspecified (principal); F20.9 Schizophrenia, unspecified; R00.0 Tachycardia, unspecified; J45.909 Unspecified asthma, uncomplicated; N39.0 Urinary tract infection, site not specified; F10.20 Alcohol dependence, uncomplicated; I10 Essential (primary) hypertension; E11.9 Type 2 diabetes mellitus without complications; K21.9 Gastro-esophageal reflux disease without esophagitis; F31.9 Bipolar disorder, unspecified; Z91.5 Personal history of self-harm; E66.9 Obesity, unspecified; D72.829 Elevated white blood cell count, unspecified; F10.230 Alcohol dependence with withdrawal, uncomplicated; S31.21XA Laceration without foreign body of penis, initial encounter; X58.XXXA Exposure to other specified factors, initial encounter; Y93.89 Activity, other specified; Y92.89 Other specified places as the place of occurrence of the external cause; Y99.8 Other external cause status; F17.210 Nicotine dependence, cigarettes, uncomplicated; E86.9 Volume depletion, unspecified; R19.7 Diarrhea, unspecified; Z68.33 Body mass index [BMI] 33.0-33.9, adult
CPT/HCPCS: 36415; 36600; 71045-TC-FY; 71275-TC; 80048; 80053; 81003; 82550; 82803; 82962; 83036; 83605; 83735; 84443; 84484; 85025; 85379; 85610; 85730; 86780; 87040; 87086; 93005; 93010; 93306-TC; 93970-TC; 99285-25; J7030

== ENCOUNTER 2021-09-10 17:28 | Inpatient (IN) | payer OTHER ==
[2021-09-10 18:00] VITALS: BMI 38.0
[2021-09-10] MEDS ORDERED: MAGNESIUM CITRATE 300 ML BOTTLE PO PRN (18:49)
[2021-09-10] MEDS ORDERED: ONDANSETRON *ODT* 4 MG TABLET SL PRN (18:49)
[2021-09-10] MEDS ORDERED: BISMUTH SUBSALICYLATE 524 MG/30 ML PO PRN (18:49)
[2021-09-10] MEDS ORDERED: MAGNESIUM HYDROX 2400MG/30ML ORAL SUSPENSION 30 ML CUP PO PRN (18:49)
[2021-09-10] MEDS ORDERED: MAG HYDROX/AL HYDROX/SIMETH 30 ML UNIT-DOSE CUP PO PRN (18:49)
[2021-09-10] MEDS ORDERED: IBUPROFEN 400 MG TABLET (FP) PO PRN (18:49)
[2021-09-10] MEDS ORDERED: MENTHOL/PHENOL 1 EACH UD MM PRN (18:49)
[2021-09-10] MEDS ORDERED: ACETAMINOPHEN 325 MG TABLET (FP) PO PRN ×2 (18:49)
[2021-09-10] MEDS ORDERED: NICOTINE POLACRILEX 2 MG GUM BUC PRN (18:49)
[2021-09-10] MEDS ORDERED: chlordiazePOXIDE HCL 25 MG CAPSULE PO PRN (18:57)
[2021-09-10] MEDS ORDERED: chlordiazePOXIDE HCL 25 MG CAPSULE PO ONE (18:57)
[2021-09-10] MEDS ORDERED: ENALAPRIL MALEATE 5 MG TABLET PO ONE (19:03)
[2021-09-10] MEDS: hydrOXYzine PAMOATE 25 MG CAPSULE (FP) PO PRN (19:35)
[2021-09-10] MEDS: METHOCARBAMOL 500 MG TABLET PO PRN (21:19)
[2021-09-10] MEDS: MELATONIN 5 MG TABLETS PO PRN (21:19)
[2021-09-10] MEDS: THIAMINE HCL 100 MG TABLET (FP) PO SCH (21:19)
[2021-09-10] MEDS: chlordiazePOXIDE HCL 25 MG CAPSULE PO SCH (22:37)
[2021-09-11] MEDS: chlordiazePOXIDE HCL 25 MG CAPSULE PO SCH ×4 (06:03→22:53)
[2021-09-11] MEDS: PRENATAL VITAMINS W/ FOLIC ACID TABLET (FP) PO SCH (10:24)
[2021-09-11] MEDS: METHOCARBAMOL 500 MG TABLET PO PRN ×3 (10:25→22:53)
[2021-09-11] MEDS: hydrOXYzine PAMOATE 25 MG CAPSULE (FP) PO PRN ×3 (10:25→22:53)
[2021-09-11 10:48] LABS: HEMATOCRIT 44.1 % (35.4-49); MCH 30.4 pg (25.7-33.7); MEAN CELL VOLUME 89.6 fl (80-96); MEAN PLT VOLUME 9.2 fl (7.5-11.1); PLATELET COUNT 215 10^3/uL (134-434); RBC 4.92 M/mm3 (4.00-5.60); RDW 14.3 % (11.9-15.9); WHITE BLOOD COUNT 4.6 K/mm3 (4.0-10.0)
[2021-09-11 10:56] LABS: ALBUMIN 3.6 g/dl (3.4-5.0); BLOOD UREA NITROGEN 4.1 mg/dL (7-18); CALCIUM 8.9 mg/dL (8.5-10.1)
[2021-09-11 11:00] LABS: CREATININE 0.7 mg/dL (0.55-1.3)
[2021-09-11 11:01] LABS: BILIRUBIN,TOTAL 0.4 mg/dL (0.2-1); TOT PROT 6.8 g/dl (6.4-8.2)
[2021-09-11] MEDS: OLANZapine 7.5 MG TABLET PO SCH (13:09)
[2021-09-11] MEDS: DULoxetine HCL 30 MG CAPSULE.DR PO SCH (13:09)
[2021-09-11] MEDS: OXcarbazepine 300 MG TABLET (UD) PO SCH ×2 (13:09→22:53)
[2021-09-11] MEDS: traZODone HCL 100 MG TABLET (FP) PO PRN (22:53)
[2021-09-11] MEDS: MELATONIN 5 MG TABLETS PO PRN (22:53)
[2021-09-11] MEDS: THIAMINE HCL 100 MG TABLET (FP) PO SCH (22:53)
[2021-09-12] MEDS: chlordiazePOXIDE HCL 25 MG CAPSULE PO SCH ×4 (06:14→22:43)
[2021-09-12] MEDS: OXcarbazepine 300 MG TABLET (UD) PO SCH ×2 (10:56→22:42)
[2021-09-12] MEDS: OLANZapine 7.5 MG TABLET PO SCH (10:56)
[2021-09-12] MEDS: DULoxetine HCL 30 MG CAPSULE.DR PO SCH (10:56)
[2021-09-12] MEDS: PRENATAL VITAMINS W/ FOLIC ACID TABLET (FP) PO SCH (10:57)
[2021-09-12] MEDS ORDERED: METHOCARBAMOL 750 MG TAB PO ONE (14:00)
[2021-09-12] MEDS ORDERED: LOPERAMIDE HCL 2 MG CAPSULE PO ONE (14:00)
[2021-09-12] MEDS: THIAMINE HCL 100 MG TABLET (FP) PO SCH (22:43)
[2021-09-12] MEDS: METHOCARBAMOL 500 MG TABLET PO PRN (22:43)
[2021-09-13] MEDS ORDERED: chlordiazePOXIDE HCL 10 MG CAPSULE PO PRN
[2021-09-13] MEDS: chlordiazePOXIDE HCL 10 MG CAPSULE PO SCH ×4 (06:07→22:15)
[2021-09-13] MEDS: PRENATAL VITAMINS W/ FOLIC ACID TABLET (FP) PO SCH (11:07)
[2021-09-13] MEDS: DULoxetine HCL 30 MG CAPSULE.DR PO SCH (11:08)
[2021-09-13] MEDS: OXcarbazepine 300 MG TABLET (UD) PO SCH ×2 (11:09→22:15)
[2021-09-13] MEDS: OLANZapine 7.5 MG TABLET PO SCH (11:09)
[2021-09-13] MEDS: METHOCARBAMOL 500 MG TABLET PO PRN (17:16)
[2021-09-13] MEDS: THIAMINE HCL 100 MG TABLET (FP) PO SCH (22:15)
[2021-09-13] MEDS: traZODone HCL 100 MG TABLET (FP) PO PRN (22:16)
[2021-09-14] MEDS: chlordiazePOXIDE HCL 10 MG CAPSULE PO SCH ×2 (06:15→17:58)
[2021-09-14] MEDS: hydrOXYzine PAMOATE 25 MG CAPSULE (FP) PO PRN ×2 (10:01→17:59)
[2021-09-14] MEDS: METHOCARBAMOL 500 MG TABLET PO PRN ×2 (10:01→17:58)
[2021-09-14] MEDS: OLANZapine 7.5 MG TABLET PO SCH (10:01)
[2021-09-14] MEDS: DULoxetine HCL 30 MG CAPSULE.DR PO SCH (10:02)
[2021-09-14] MEDS: PRENATAL VITAMINS W/ FOLIC ACID TABLET (FP) PO SCH (10:02)
[2021-09-14] MEDS: OXcarbazepine 300 MG TABLET (UD) PO SCH ×2 (10:03→23:03)
[2021-09-14] MEDS: traZODone HCL 100 MG TABLET (FP) PO PRN (21:40)
[2021-09-14] MEDS: MELATONIN 5 MG TABLETS PO PRN (21:40)
[2021-09-14] MEDS: THIAMINE HCL 100 MG TABLET (FP) PO SCH (21:40)
[2021-09-15] MEDS ORDERED: chlordiazePOXIDE HCL 10 MG CAPSULE PO ONE (05:00)
[2021-09-15 09:51] VITALS: BP 137/87; PULSE 68; TEMP 98.1
== END 2021-09-15 09:33 | disposition home or self-care (01) | DRG 774 ==
LOC: YASAS 17:28 → Y6N 18:20
PROVIDERS: ADMIT Allergy & Immunology; ATTEND Allergy & Immunology
PROC: HZ2ZZZZ Detoxification Services for Substance Abuse Treatment (ICD-10-PCS; principal; 2021-09-10)
DX: F10.230 Alcohol dependence with withdrawal, uncomplicated (principal); F14.20 Cocaine dependence, uncomplicated; F12.20 Cannabis dependence, uncomplicated; F17.210 Nicotine dependence, cigarettes, uncomplicated; F31.9 Bipolar disorder, unspecified; F25.9 Schizoaffective disorder, unspecified; F43.10 Post-traumatic stress disorder, unspecified; U07.1 COVID-19; E11.9 Type 2 diabetes mellitus without complications; I10 Essential (primary) hypertension; J45.909 Unspecified asthma, uncomplicated; K21.9 Gastro-esophageal reflux disease without esophagitis; Z62.810 Personal history of physical and sexual abuse in childhood; Z86.69 Personal history of other diseases of the nervous system and sense organs; Z88.8 Allergy status to other drugs, medicaments and biological substances
CPT/HCPCS: 36415; 80053; 85027; 86780; C9803; U0003; U0005

== ENCOUNTER 2023-04-09 15:03 | Inpatient (IN) | payer OTHER ==
[2023-04-09 16:42] VITALS: BMI 38.3
[2023-04-09] MEDS ORDERED: BENZOCAINE/MENTHOL (CHLORASEPTIC ) LOZENGE MM PRN (17:11)
[2023-04-09] MEDS ORDERED: IBUPROFEN 400 MG TABLET (FP) PO PRN (17:11)
[2023-04-09] MEDS ORDERED: POLYETHYLENE GLYCOL (HEALTHYLAX) 3350 17 GM PACKET PO PRN (17:11)
[2023-04-09] MEDS ORDERED: BISMUTH SUBSALICYLATE 524 MG/30 ML PO PRN (17:11)
[2023-04-09] MEDS ORDERED: ACETAMINOPHEN 325 MG TABLET (FP) PO PRN (17:11)
[2023-04-09] MEDS ORDERED: BENZONATATE 200 MG CAPSULE PO PRN (17:11)
[2023-04-09] MEDS ORDERED: NALOXONE HCL (KLOXXADO) 8 MG SPRAY NS PRN (17:11)
[2023-04-09] MEDS ORDERED: MAGNESIUM HYDROX 2400MG/30ML ORAL SUSPENSION 30 ML CUP PO PRN (17:11)
[2023-04-09] MEDS ORDERED: MAG HYDROX/AL HYDROX/SIMETH 30 ML UNIT-DOSE CUP PO PRN (17:11)
[2023-04-09] MEDS ORDERED: guaiFENesin 600 MG TABLET.ER (FP) PO PRN (17:11)
[2023-04-09] MEDS ORDERED: LOPERAMIDE HCL 2 MG CAPSULE PO PRN (17:11)
[2023-04-09] MEDS ORDERED: NALOXONE HCL 0.4 MG/ML VIAL IM PRN (17:11)
[2023-04-09] MEDS: diazePAM 5 MG TABLET PO PRN (17:36)
[2023-04-09] MEDS ORDERED: IBUPROFEN 600 MG TABLET (FP) PO ONE (17:54)
[2023-04-09] MEDS: IBUPROFEN 600 MG TABLET (FP) PO PRN (17:59)
[2023-04-09] MEDS: diazePAM 5 MG TABLET PO SCH ×2 (18:05→22:11)
[2023-04-09] MEDS: METHOCARBAMOL 500 MG TABLET PO PRN (19:46)
[2023-04-09] MEDS: hydrOXYzine PAMOATE 25 MG CAPSULE (FP) PO PRN (19:46)
[2023-04-09] MEDS: propRANOLol HCL 10 MG TABLET PO SCH (21:11)
[2023-04-09] MEDS: OXcarbazepine 300 MG TABLET (UD) PO SCH (21:12)
[2023-04-09] MEDS: ONDANSETRON *ODT* 4 MG TABLET SL PRN (21:14)
[2023-04-09] MEDS: THIAMINE HCL 100 MG TABLET (FP) PO SCH (22:11)
[2023-04-09] MEDS: MELATONIN 5 MG TABLETS PO SCH (22:11)
[2023-04-10] MEDS: diazePAM 5 MG TABLET PO PRN ×4 (01:43→20:30)
[2023-04-10] MEDS: IBUPROFEN 600 MG TABLET (FP) PO PRN ×3 (01:44→20:32)
[2023-04-10] MEDS: diazePAM 5 MG TABLET PO SCH ×4 (05:43→22:57)
[2023-04-10 09:35] LABS: HEMATOCRIT 48.2 % (35.4-49); HEMOGLOBIN 16.6 GM/dL (11.7-16.9); MCH 29.9 pg (25.7-33.7); MCHC 34.5 g/dl (32.0-35.9); MEAN CELL VOLUME 86.7 fl (80-96); MEAN PLT VOLUME 8.3 fl (7.5-11.1); PLATELET COUNT 236 10^3/uL (134-434); RBC 5.56 M/mm3 (4.00-5.60); WHITE BLOOD COUNT 5.5 K/mm3 (4.0-10.0)
[2023-04-10] MEDS: PRENATAL VITAMINS W/ FOLIC ACID TABLET (FP) PO SCH (10:14)
[2023-04-10] MEDS: OXcarbazepine 300 MG TABLET (UD) PO SCH ×2 (10:14→22:56)
[2023-04-10] MEDS: propRANOLol HCL 10 MG TABLET PO SCH (10:14)
[2023-04-10] MEDS: hydrOXYzine PAMOATE 25 MG CAPSULE (FP) PO PRN ×2 (10:16→22:58)
[2023-04-10] MEDS: ONDANSETRON *ODT* 4 MG TABLET SL PRN (13:36)
[2023-04-10 14:08] LABS: POTASSIUM 4.5 mmol/L (3.5-5.1)
[2023-04-10 14:12] LABS: CALCIUM 9.3 mg/dL (8.5-10.1)
[2023-04-10 14:16] LABS: CREATININE 0.9 mg/dL (0.55-1.3)
[2023-04-10 14:17] LABS: BILIRUBIN,TOTAL 1.1 mg/dL (0.2-1); TOT PROT 7.5 g/dl (6.4-8.2)
[2023-04-10] MEDS ORDERED: MIRTAZAPINE 15 MG TABLET (FP) ONE (21:44)
[2023-04-10] MEDS ORDERED: traZODone HCL 100 MG TABLET (FP) PO SCH (22:00)
[2023-04-10] MEDS ORDERED: OLANZapine 10 MG TABLET PO SCH (22:00)
[2023-04-10] MEDS: THIAMINE HCL 100 MG TABLET (FP) PO SCH (22:56)
[2023-04-10] MEDS: MELATONIN 5 MG TABLETS PO SCH (22:56)
[2023-04-10] MEDS: MIRTAZAPINE 30 MG TABLET PO SCH (22:56)
[2023-04-10] MEDS: METHOCARBAMOL 500 MG TABLET PO PRN (22:58)
[2023-04-11] MEDS: diazePAM 5 MG TABLET PO PRN ×3 (02:47→16:37)
[2023-04-11] MEDS: diazePAM 5 MG TABLET PO SCH ×3 (05:32→22:18)
[2023-04-11] MEDS: DICYCLOMINE HCL 10 MG CAPSULE PO PRN (08:37)
[2023-04-11] MEDS: IBUPROFEN 600 MG TABLET (FP) PO PRN (08:38)
[2023-04-11] MEDS: OXcarbazepine 300 MG TABLET (UD) PO SCH ×2 (10:02→22:17)
[2023-04-11] MEDS: PRENATAL VITAMINS W/ FOLIC ACID TABLET (FP) PO SCH (10:02)
[2023-04-11] MEDS: propRANOLol HCL 10 MG TABLET PO SCH (10:02)
[2023-04-11] MEDS: METHOCARBAMOL 500 MG TABLET PO PRN (10:04)
[2023-04-11] MEDS: ARIPiprazole 10 MG TABLET PO SCH (12:24)
[2023-04-11] MEDS ORDERED: cloNIDine HCL 0.1 MG TABLET PO PRN (15:01)
[2023-04-11] MEDS: hydrOXYzine PAMOATE 25 MG CAPSULE (FP) PO PRN (16:40)
[2023-04-11] MEDS ORDERED: MIRTAZAPINE 15 MG TABLET (FP) ONE (21:32)
[2023-04-11] MEDS: MIRTAZAPINE 30 MG TABLET PO SCH (22:17)
[2023-04-11] MEDS: THIAMINE HCL 100 MG TABLET (FP) PO SCH (22:17)
[2023-04-12] MEDS: IBUPROFEN 600 MG TABLET (FP) PO PRN ×3 (01:44→21:04)
[2023-04-12] MEDS: diazePAM 5 MG TABLET PO PRN ×3 (01:47→14:06)
[2023-04-12] MEDS: diazePAM 5 MG TABLET PO SCH ×2 (05:15→17:24)
[2023-04-12] MEDS: hydrOXYzine PAMOATE 25 MG CAPSULE (FP) PO PRN ×2 (05:15→14:06)
[2023-04-12] MEDS: DICYCLOMINE HCL 10 MG CAPSULE PO PRN ×2 (08:32→17:26)
[2023-04-12] MEDS: propRANOLol HCL 10 MG TABLET PO SCH (09:37)
[2023-04-12] MEDS: ARIPiprazole 10 MG TABLET PO SCH (09:37)
[2023-04-12] MEDS: PRENATAL VITAMINS W/ FOLIC ACID TABLET (FP) PO SCH (09:37)
[2023-04-12] MEDS: OXcarbazepine 300 MG TABLET (UD) PO SCH ×2 (09:38→21:04)
[2023-04-12] MEDS ORDERED: MIRTAZAPINE 15 MG TABLET (FP) ONE (20:38)
[2023-04-12] MEDS: METHOCARBAMOL 500 MG TABLET PO PRN (21:04)
[2023-04-12] MEDS: MIRTAZAPINE 30 MG TABLET PO SCH (21:04)
[2023-04-12] MEDS: THIAMINE HCL 100 MG TABLET (FP) PO SCH (21:06)
[2023-04-12] MEDS ORDERED: LISINOPRIL 5 MG TABLET PO ONE (21:30)
[2023-04-13] MEDS ORDERED: cloNIDine HCL 0.1 MG TABLET PO ONE (00:06)
[2023-04-13] MEDS: hydrOXYzine PAMOATE 25 MG CAPSULE (FP) PO PRN (05:36)
[2023-04-13] MEDS: IBUPROFEN 600 MG TABLET (FP) PO PRN (05:37)
[2023-04-13] MEDS ORDERED: diazePAM 5 MG TABLET PO ONE (06:00)
[2023-04-13 06:49] VITALS: RESP 17
[2023-04-13] MEDS ORDERED: amLODIPine BESYLATE 10 MG TABLET (FP) PO ONE (09:05)
[2023-04-13] MEDS: ARIPiprazole 10 MG TABLET PO SCH (09:08)
[2023-04-13] MEDS: propRANOLol HCL 10 MG TABLET PO SCH (09:08)
[2023-04-13] MEDS: OXcarbazepine 300 MG TABLET (UD) PO SCH (09:09)
[2023-04-13] MEDS: PRENATAL VITAMINS W/ FOLIC ACID TABLET (FP) PO SCH (09:09)
[2023-04-13 10:06] VITALS: BP 164/101; PULSE 84; TEMP 97.5
== END 2023-04-13 09:11 | disposition home or self-care (01) | DRG 775 ==
LOC: YASAS 15:03 → Y3N 19:04
PROVIDERS: ADMIT Surgery; ATTEND Allergy & Immunology
PROC: HZ2ZZZZ Detoxification Services for Substance Abuse Treatment (ICD-10-PCS; principal; 2023-04-09)
DX: F10.230 Alcohol dependence with withdrawal, uncomplicated (principal); F12.20 Cannabis dependence, uncomplicated; F17.210 Nicotine dependence, cigarettes, uncomplicated; F19.24 Other psychoactive substance dependence with psychoactive substance-induced mood disorder; F41.9 Anxiety disorder, unspecified; I10 Essential (primary) hypertension; K21.9 Gastro-esophageal reflux disease without esophagitis; E11.9 Type 2 diabetes mellitus without complications; Z79.84 Long term (current) use of oral hypoglycemic drugs; Z86.59 Personal history of other mental and behavioral disorders; Z88.8 Allergy status to other drugs, medicaments and biological substances
CPT/HCPCS: 36415; 80053; 80178; 82962; 85027; 86780; 87635; Q0162

== ENCOUNTER 2023-12-27 13:07 | Inpatient (IN) | payer OTHER ==
[2023-12-27 13:58] VITALS: BMI 32.5
[2023-12-27] MEDS ORDERED: hydrOXYzine PAMOATE 25 MG CAPSULE (FP) PO PRN (15:59)
[2023-12-27] MEDS ORDERED: LOPERAMIDE HCL 2 MG CAPSULE PO PRN (15:59)
[2023-12-27] MEDS ORDERED: NALOXONE HCL 0.4 MG/ML VIAL IM PRN (15:59)
[2023-12-27] MEDS ORDERED: MAGNESIUM HYDROX 2400MG/30ML ORAL SUSPENSION 30 ML CUP PO PRN (15:59)
[2023-12-27] MEDS ORDERED: MAG HYDROX/AL HYDROX/SIMETH 30 ML UNIT-DOSE CUP PO PRN (15:59)
[2023-12-27] MEDS ORDERED: guaiFENesin 600 MG TABLET.ER (FP) PO PRN (15:59)
[2023-12-27] MEDS ORDERED: NALOXONE HCL (KLOXXADO) 8 MG SPRAY NS PRN (15:59)
[2023-12-27] MEDS ORDERED: ACETAMINOPHEN 325 MG TABLET (FP) PO PRN (15:59)
[2023-12-27] MEDS ORDERED: BENZOCAINE/MENTHOL (CHLORASEPTIC ) LOZENGE MM PRN (15:59)
[2023-12-27] MEDS ORDERED: BISMUTH SUBSALICYLATE 524 MG/30 ML PO PRN (15:59)
[2023-12-27] MEDS ORDERED: POLYETHYLENE GLYCOL (HEALTHYLAX) 3350 17 GM PACKET PO PRN (15:59)
[2023-12-27] MEDS ORDERED: BENZONATATE 200 MG CAPSULE PO PRN (15:59)
[2023-12-27] MEDS ORDERED: METHOCARBAMOL 500 MG TABLET PO PRN (15:59)
[2023-12-27] MEDS ORDERED: IBUPROFEN 400 MG TABLET (FP) PO PRN (15:59)
[2023-12-27] MEDS ORDERED: DICYCLOMINE HCL 10 MG CAPSULE PO PRN (15:59)
[2023-12-27] MEDS ORDERED: LORazepam 2 MG TABLET ONE (16:34)
[2023-12-27] MEDS ORDERED: PRENATAL VITAMINS W/ FOLIC ACID TABLET (FP) PO ONE (16:34)
[2023-12-27] MEDS ORDERED: ONDANSETRON *ODT* 4 MG TABLET ONE (16:45)
[2023-12-27] MEDS: ONDANSETRON *ODT* 4 MG TABLET SL PRN (16:45)
[2023-12-27] MEDS: LORazepam 2 MG TABLET PO ONE (16:49)
[2023-12-27] MEDS: PRENATAL VITAMINS W/ FOLIC ACID TABLET (FP) PO SCH (16:50)
[2023-12-27] MEDS: INSULIN ASPART SLIDING SCALE (NOVOLOG) 1 VIAL SQ SCH (16:51)
[2023-12-27] MEDS: LORazepam 1 MG TABLET PO PRN (17:41)
[2023-12-27] MEDS ORDERED: MIRTAZAPINE 30 MG TABLET PO SCH ×2 (22:00)
[2023-12-27] MEDS: MELATONIN 5 MG TABLETS PO SCH (22:13)
[2023-12-27] MEDS: LORazepam 2 MG TABLET PO SCH (22:13)
[2023-12-27] MEDS: THIAMINE 100 MG TABLET PO SCH (22:13)
[2023-12-27] MEDS: traZODone HCL 50 MG TABLET (FP) PO SCH (22:13)
[2023-12-27] MEDS: MIRTAZAPINE PO SCH (23:30)
[2023-12-28] MEDS ORDERED: INSULIN ASPART SLIDING SCALE (NOVOLOG) 1 VIAL SQ ONE (07:01)
[2023-12-28] MEDS: amLODIPine BESYLATE 10 MG TABLET (FP) PO SCH (10:31)
[2023-12-28] MEDS: LITHIUM CARBONATE 300 MG CAPSULE PO SCH (11:50)
[2023-12-28 14:52] LABS: CHLORIDE 104 mmol/L (98-107); POTASSIUM 4.6 mmol/L (3.5-5.1); SODIUM 139 mmol/L (136-145)
[2023-12-28 14:53] LABS: HEMATOCRIT 42.9 % (35.4-49); HEMOGLOBIN 14.7 GM/dL (11.7-16.9); MCH 30.9 pg (25.7-33.7); MCHC 34.2 g/dl (32.0-35.9); MEAN CELL VOLUME 90.3 fl (80-96); MEAN PLT VOLUME 8.4 fl (7.5-11.1); PLATELET COUNT 167 10^3/uL (134-434); RBC 4.75 M/mm3 (4.00-5.60); WHITE BLOOD COUNT 4.6 K/mm3 (4.0-10.0)
[2023-12-28 14:56] LABS: CALCIUM 8.9 mg/dL (8.5-10.1)
[2023-12-28 14:57] LABS: ALBUMIN 3.4 g/dl (3.4-5.0); ANION GAP 6 mmol/L (4-13); BLOOD UREA NITROGEN 8.5 mg/dL (7-18); CO2 29 mmol/L (21-32); GLUCOSE,RANDOM 108 mg/dL (74-106)
[2023-12-28 15:00] LABS: CREATININE 0.8 mg/dL (0.55-1.3); SGOT/AST 99 U/L (15-37); SGPT/ALT 111 U/L (13-61)
[2023-12-28 15:02] LABS: BILIRUBIN,TOTAL 1.4 mg/dL (0.2-1)
[2023-12-28 15:04] LABS: ALK PHOS 153 U/L (45-117)
[2023-12-28] MEDS: QUEtiapine FUMARATE 100 MG TABLET (FP) PO SCH (22:06)
[2023-12-28] MEDS: MIRTAZAPINE 30 MG TABLET PO SCH (22:07)
[2023-12-28] MEDS: OLANZapine 10 MG TABLET PO SCH (22:07)
[2023-12-29] MEDS: LORazepam 1 MG TABLET PO SCH (05:52)
[2023-12-29 09:22] VITALS: PULSE 102
[2023-12-29] MEDS: IBUPROFEN 600 MG TABLET (FP) PO PRN (11:03)
[2023-12-29] MEDS: PANTOPRAZOLE 20 MG TABLET PO SCH (12:31)
[2023-12-29] MEDS: BACITRACIN 0.9 GM PACKET TP SCH (12:31)
[2023-12-29 12:56] VITALS: BP 141/91; RESP 16; TEMP 96.5
[2023-12-29] MEDS: DULoxetine HCL 20 MG CAPSULE.DR PO SCH (13:21)
[2023-12-30] MEDS ORDERED: LORazepam 0.5 MG TABLET PO PRN
[2023-12-30] MEDS ORDERED: LORazepam 0.5 MG TABLET PO SCH (05:00)
[2023-12-31] MEDS ORDERED: LORazepam 0.5 MG TABLET PO ONE (05:00)
== END 2023-12-29 15:40 | disposition left against medical advice (07) | DRG 770 ==
LOC: YASAS 13:07 → Y3N 16:35
PROVIDERS: ADMIT Allergy & Immunology; ATTEND Surgery
PROC: HZ2ZZZZ Detoxification Services for Substance Abuse Treatment (ICD-10-PCS; principal; 2023-12-27)
DX: F10.230 Alcohol dependence with withdrawal, uncomplicated (principal); F14.20 Cocaine dependence, uncomplicated; F17.210 Nicotine dependence, cigarettes, uncomplicated; F43.10 Post-traumatic stress disorder, unspecified; F19.94 Other psychoactive substance use, unspecified with psychoactive substance-induced mood disorder; I10 Essential (primary) hypertension; E11.9 Type 2 diabetes mellitus without complications; K21.9 Gastro-esophageal reflux disease without esophagitis; E72.20 Disorder of urea cycle metabolism, unspecified; R74.8 Abnormal levels of other serum enzymes; J45.909 Unspecified asthma, uncomplicated; G47.00 Insomnia, unspecified; Z79.84 Long term (current) use of oral hypoglycemic drugs; Z91.51 Personal history of suicidal behavior; Z56.0 Unemployment, unspecified
CPT/HCPCS: 36415; 80053; 80178; 80305; 80307; 82140; 82962; 85027; 86780; 93005; 93010; Q0162

== ENCOUNTER 2024-02-26 12:33 | Inpatient (IN) | payer OTHER ==
[2024-02-26 14:17] VITALS: BMI 31.4
[2024-02-26] MEDS ORDERED: IBUPROFEN 400 MG TABLET (FP) PO PRN (14:50)
[2024-02-26] MEDS ORDERED: NALOXONE (NARCAN) HCL 4 MG/0.1 ML SPRAY NS PRN (14:50)
[2024-02-26] MEDS ORDERED: NICOTINE POLACRILEX 4 MG GUM BUC PRN (14:50)
[2024-02-26] MEDS ORDERED: ACETAMINOPHEN 325 MG TABLET (FP) PO PRN (14:50)
[2024-02-26] MEDS ORDERED: POLYETHYLENE GLYCOL (HEALTHYLAX) 3350 17 GM PACKET PO PRN (14:50)
[2024-02-26] MEDS ORDERED: DICYCLOMINE HCL 10 MG CAPSULE PO PRN (14:50)
[2024-02-26] MEDS ORDERED: BISMUTH SUBSALICYLATE 262 MG/15 ML BTL PO PRN (14:50)
[2024-02-26] MEDS ORDERED: MAG HYDROX/AL HYDROX/SIMETH 30 ML UNIT-DOSE CUP PO PRN (14:50)
[2024-02-26] MEDS ORDERED: BENZONATATE 200 MG CAPSULE PO PRN (14:50)
[2024-02-26] MEDS ORDERED: BENZOCAINE/MENTHOL (CHLORASEPTIC ) LOZENGE MM PRN (14:50)
[2024-02-26] MEDS ORDERED: LOPERAMIDE HCL 2 MG CAPSULE PO PRN (14:50)
[2024-02-26] MEDS ORDERED: guaiFENesin 600 MG TABLET.ER (FP) PO PRN (14:50)
[2024-02-26] MEDS ORDERED: MAGNESIUM HYDROX 2400MG/30ML ORAL SUSPENSION 30 ML CUP PO PRN (14:50)
[2024-02-26] MEDS ORDERED: IBUPROFEN 600 MG TABLET (FP) PO PRN (14:50)
[2024-02-26] MEDS ORDERED: NICOTINE POLACRILEX 2 MG LOZENGE BC PRN (14:50)
[2024-02-26] MEDS ORDERED: NALOXONE HCL 0.4 MG/ML VIAL IM PRN (14:50)
[2024-02-26] MEDS ORDERED: LORazepam 1 MG TABLET ONE (15:19)
[2024-02-26] MEDS: LORazepam 1 MG TABLET PO ONE (15:25)
[2024-02-26] MEDS ORDERED: PRENATAL VITAMINS W/ FOLIC ACID TABLET (FP) PO ONE (15:25)
[2024-02-26] MEDS: PRENATAL VITAMINS W/ FOLIC ACID TABLET (FP) PO SCH (15:26)
[2024-02-26] MEDS: LORazepam 2 MG TABLET PO ONE (16:10)
[2024-02-26] MEDS: PANTOPRAZOLE 20 MG TABLET PO SCH (17:27)
[2024-02-26] MEDS: amLODIPine BESYLATE 5 MG TABLET (FP) PO SCH (17:28)
[2024-02-26] MEDS: LORazepam 2 MG TABLET PO SCH (17:29)
[2024-02-26] MEDS: INSULIN (NOVOLOG) ASPART 100 UNITS/ML 10ML VIAL SQ SCH (17:44)
[2024-02-26] MEDS: LORazepam 1 MG TABLET PO PRN (20:01)
[2024-02-26] MEDS: MELATONIN 5 MG TABLETS PO SCH (22:23)
[2024-02-26] MEDS: THIAMINE 100 MG TABLET PO SCH (22:23)
[2024-02-26] MEDS: METHOCARBAMOL 500 MG TABLET PO PRN (22:24)
[2024-02-26] MEDS: hydrOXYzine PAMOATE 25 MG CAPSULE (FP) PO PRN (22:24)
[2024-02-26] MEDS: ONDANSETRON *ODT* 4 MG TABLET SL PRN (22:25)
[2024-02-27] MEDS: INSULIN ASPART SLIDING SCALE (NOVOLOG) 1 VIAL SQ SCH (06:58)
[2024-02-27 11:41] LABS: HEMATOCRIT 43.8 % (35.4-49); HEMOGLOBIN 15.1 GM/dL (11.7-16.9); MCH 31.5 pg (25.7-33.7); MCHC 34.5 g/dl (32.0-35.9); MEAN CELL VOLUME 91.2 fl (80-96); MEAN PLT VOLUME 8.6 fl (7.5-11.1); PLATELET COUNT 165 10^3/uL (134-434); RBC 4.81 M/mm3 (4.00-5.60); RDW 15.1 % (11.9-15.9); WHITE BLOOD COUNT 5.7 K/mm3 (4.0-10.0)
[2024-02-27 11:48] LABS: CHLORIDE 101 mmol/L (98-107); POTASSIUM 3.9 mmol/L (3.5-5.1); SODIUM 138 mmol/L (136-145)
[2024-02-27 11:50] LABS: ALBUMIN 3.9 g/dl (3.4-5.0); BLOOD UREA NITROGEN 11.6 mg/dL (7-18)
[2024-02-27 11:51] LABS: GLUCOSE,RANDOM 110 mg/dL (74-106)
[2024-02-27 11:52] LABS: ANION GAP 8 mmol/L (4-13); CALCIUM 8.8 mg/dL (8.5-10.1); CO2 29 mmol/L (21-32); CREATININE 0.7 mg/dL (0.55-1.3); SGPT/ALT 46 U/L (13-61)
[2024-02-27 11:55] LABS: ALK PHOS 141 U/L (45-117); SGOT/AST 40 U/L (15-37); TOT PROT 7.7 g/dl (6.4-8.2)
[2024-02-27 11:57] LABS: BILIRUBIN,TOTAL 0.6 mg/dL (0.2-1)
[2024-02-27] MEDS: OLANZapine 10 MG TABLET PO SCH (22:51)
[2024-02-27] MEDS: QUEtiapine FUMARATE 100 MG TABLET (FP) PO SCH (22:51)
[2024-02-28] MEDS: LORazepam 1 MG TABLET PO SCH (05:21)
[2024-02-28 08:53] VITALS: BP 137/99; PULSE 90; RESP 16; TEMP 98.7
[2024-02-28] MEDS: DULoxetine HCL 30 MG CAPSULE.DR PO SCH (09:42)
[2024-02-29] MEDS ORDERED: LORazepam 0.5 MG TABLET PO PRN
[2024-02-29] MEDS ORDERED: LORazepam 0.5 MG TABLET PO SCH (05:00)
[2024-03-01] MEDS ORDERED: LORazepam 0.5 MG TABLET PO ONE (05:00)
== END 2024-02-28 09:44 | disposition home or self-care (01) | DRG 861 ==
LOC: YASAS 12:33 → Y3N 15:03
PROVIDERS: ADMIT Allergy & Immunology; ATTEND Surgery
PROC: HZ2ZZZZ Detoxification Services for Substance Abuse Treatment (ICD-10-PCS; principal; 2024-02-26)
DX: F17.210 Nicotine dependence, cigarettes, uncomplicated (principal); F14.20 Cocaine dependence, uncomplicated; F12.20 Cannabis dependence, uncomplicated; F10.280 Alcohol dependence with alcohol-induced anxiety disorder; F10.24 Alcohol dependence with alcohol-induced mood disorder; F25.9 Schizoaffective disorder, unspecified; G47.00 Insomnia, unspecified; I10 Essential (primary) hypertension; E11.9 Type 2 diabetes mellitus without complications; Z79.84 Long term (current) use of oral hypoglycemic drugs; R79.89 Other specified abnormal findings of blood chemistry
CPT/HCPCS: 36415; 80053; 80178; 80305; 80307; 82140; 82962; 85027; 86780; 93005; 93010; G0480; Q0162